=== PATIENT | male | born 1940 | race Caucasian/White ===

== ENCOUNTER 2020-03-09 13:04 | Inpatient (IN) | payer OTHER, SELFPAY ==
[~2020-03-09] VITALS: Ht 172.7 cm; Wt 90.7 kg
[2020-03-09 13:20] VITALS: BP_SYST 105
[2020-03-09 14:04] LABS: BASOPHILS # (AUTO) 0.1 K/uL (0.0-0.2); BASOPHILS % (AUTO) 0.3 % (0.0-2.0); EOSINOPHILS # (AUTO) 0.1 K/uL (0.0-0.4); EOSINOPHILS % (AUTO) 0.6 % (0.0-4.0); HEMATOCRIT 38.7 % (36-54); HEMOGLOBIN 12.5 g/dL (14.0-18.0); LYMPHOCYTES # (AUTO) 1.2 K/uL (1.0-5.5); LYMPHOCYTES % (AUTO) 5.5 % (20.5-51.5); MEAN CORPUSCULAR HEMOGLOBIN 31 pg (27-31); MEAN CORPUSCULAR HGB CONC 32 % (32-36); MEAN CORPUSCULAR VOLUME 98 fL (79.0-98.0); MONOCYTES # (AUTO) 0.4 K/uL (0.0-1.0); MONOCYTES % (AUTO) 1.7 % (1.7-9.3); NEUTROPHILS # (AUTO) 20.7 K/uL (1.8-7.7); NEUTROPHILS % (AUTO) 91.9 % (40.0-70.0); PLATELET COUNT (AUTO) 300 K/uL (130-430); RED BLOOD CELL COUNT(AUTO) 3.97 MIL/uL (4.2-6.2); WHITE BLOOD COUNT (AUTO) 22.5 K/uL (4.8-10.8)
[2020-03-09 14:24] LABS: ANION GAP 12 (5-15); CALCIUM 8.3 mg/dL (8.4-11.0); CHLORIDE 101 mmol/L (98-107); CREATININE 1.94 mg/dL (0.55-1.30); GLUCOSE 132 mg/dL (70-99); POTASSIUM 3.8 mmol/L (3.5-5.1); SODIUM SERUM 138 mmol/L (136-145); UREA NITROGEN, BLOOD 18 mg/dL (8-21)
[2020-03-09 14:30] LABS: ALANINE AMINOTRANSFERASE 15 U/L (12-78); ASPARTATE AMINOTRANSFERASE 31 U/L (10-37); LACTATE DEHYDROGENASE 172 U/L (85-227); TOTAL BILIRUBIN 0.4 mg/dL (0.0-1.0)
[2020-03-09 14:54] LABS: PROTHROMBIN TIME 10.5 SECS (9.5-12.5)
[2020-03-09] MEDS ORDERED: PIPERACILLIN/TAZO 3.375 GM in NS 50 ML IV ONE (15:30)
[2020-03-09] MEDS ORDERED: AZITHROMYCIN 500 MG in NS 250 ML IV ONE (15:30)
[2020-03-09] MEDS ORDERED: NS 500 ML IV ONE (15:45)
[2020-03-09] MEDS ORDERED: NACL 0.9% 2,000 ML IV ONE (15:45)
[2020-03-09] MEDS ORDERED: AZITHROMYCIN 500 MG/VIAL (ZITHROMAX) IV ONE (15:56)
[2020-03-09] MEDS ORDERED: PIPERACILLIN/TAZOBACTAM 3.375 GM/VIAL (ZOSYN) IV ONE (15:56)
[2020-03-09] MEDS ORDERED: FURO-149 PO (16:30)
[2020-03-09] MEDS ORDERED: CARB1TAB21 PO (16:30)
[2020-03-09] MEDS ORDERED: LIP10 PO (16:30)
[2020-03-09 17:30] LABS: BILIRUBIN,URINE NEGATIVE (NEGATIVE); BLOOD, URINE NEGATIVE (NEGATIVE); COLOR,URINE YELLOW (YELLOW); GLUCOSE,URINE NEGATIVE (NEGATIVE); KETONES,URINE NEGATIVE (NEGATIVE); LEUKOCYTE ESTERASE ,URINE 1+ (NEGATIVE); NITRITE, URINE NEGATIVE (NEGATIVE); PROTEIN URINE NEGATIVE (NEGATIVE); UROBILINOGEN,URINE 0.2 (0.2-1.0)
[2020-03-09 17:38] LABS: CLARITY/URINE SLIGHTLY HAZY (CLEAR)
[2020-03-09 17:43] LABS: BACTERIA,URINE FEW /HPF (None Seen); MUCUS,URINE None Seen /LPF (None Seen); RBC,URINE 0-3 /HPF (0-3); YEAST,URINE Moderate /HPF (None Seen)
[2020-03-09 17:44] LABS: WBC,URINE 20-50 /HPF (0-3)
[2020-03-09 17:44] LABS: C-REACTIVE PROTEIN QUANT 2.9 mg/dL (0-0.5)
[2020-03-09] MEDS ORDERED: cefTRIAXone 1 GM IVPB PREMIX 50 ML IV SCH (20:00)
[2020-03-09] MEDS ORDERED: VANCOMYCIN HCL 1000 MG/VIAL IV ONE (20:34)
[2020-03-09] MEDS ORDERED: cefTRIAXone 1 GM IVPB PREMIX 50 ML IV ONE (20:34)
[2020-03-09 20:57] VITALS: BP_SYST 121
[2020-03-09] MEDS: CARBIDOPA/LEVODOPA 25/100 MG TABLET PO SCH (21:00)
[2020-03-09] MEDS ORDERED: VANCOMYCIN HCL 1 GM/NS PREMIX 250 ML IV ONE (21:00)
[2020-03-09] MEDS: ATORVASTATIN 10 MG TABLET PO SCH (21:00)
[2020-03-09] MEDS: NORMAL SALINE 5 ML DISP.SYRIN IVF SCH (22:00)
[2020-03-09] MEDS ORDERED: FUROSEMIDE 40 MG TABLET PO ONE (22:30)
[2020-03-10] VITALS: BP_SYST 126
[2020-03-10] MEDS: NORMAL SALINE 5 ML DISP.SYRIN IVF SCH ×3 (06:02→23:14)
[2020-03-10 07:42] LABS: HEMATOCRIT 33.9 % (36-54); HEMOGLOBIN 11.1 g/dL (14.0-18.0); MEAN CORPUSCULAR HEMOGLOBIN 32 pg (27-31); MEAN CORPUSCULAR HGB CONC 33 % (32-36); MEAN CORPUSCULAR VOLUME 98 fL (79.0-98.0); PLATELET COUNT (AUTO) 247 K/uL (130-430); RED BLOOD CELL COUNT(AUTO) 3.46 MIL/uL (4.2-6.2); RED CELL DISTRIBUTION WIDTH 15.5 % (9.0-15.0)
[2020-03-10 08:00] LABS: ALANINE AMINOTRANSFERASE 17 U/L (12-78); ALBUMIN 2.6 g/dL (3.4-4.8); ANION GAP 10 (5-15); ASPARTATE AMINOTRANSFERASE 38 U/L (10-37); CALCIUM 7.9 mg/dL (8.4-11.0); CHLORIDE 101 mmol/L (98-107); CREATININE 2.34 mg/dL (0.55-1.30); GLUCOSE 155 mg/dL (70-99); POTASSIUM 3.8 mmol/L (3.5-5.1); SODIUM SERUM 138 mmol/L (136-145); TOTAL BILIRUBIN 0.5 mg/dL (0.0-1.0); UREA NITROGEN, BLOOD 27 mg/dL (8-21)
[2020-03-10 08:31] LABS: BAND % (MANUAL) 8 % (0-6); BASOPHILS % (MANUAL) 0 % (0-2); EOSINOPHILS % (MANUAL) 0 % (0-7); LYMPHOCYTES % (MANUAL) 3 % (20-46); MONOCYTES % (MANUAL) 2 % (0-11)
[2020-03-10 09:00] VITALS: BP_SYST 106
[2020-03-10] MEDS: FUROSEMIDE 40 MG TABLET PO SCH ×2 (09:30→21:00)
[2020-03-10] MEDS: CARBIDOPA/LEVODOPA 25/100 MG TABLET PO SCH ×4 (09:31→21:00)
[2020-03-10 13:45] VITALS: BP_SYST 116
[2020-03-10] MEDS: PIPERACILLIN/TAZO 2.25G/DEX-IS 50 ML IV SCH ×2 (14:00→23:14)
[2020-03-10 16:59] VITALS: BP_SYST 145
[2020-03-10] MEDS: AZITHROMYCIN 500 MG in NS 250 ML IV SCH (17:04)
[2020-03-10 20:00] VITALS: BP_SYST 131
[2020-03-10] MEDS: VANCOMYCIN HCL 1,000 MG in NS 250 ML IV SCH (21:00)
[2020-03-10] MEDS: ATORVASTATIN 10 MG TABLET PO SCH (21:00)
[2020-03-11] VITALS: BP_SYST 110
[2020-03-11] MEDS: NORMAL SALINE 5 ML DISP.SYRIN IVF SCH ×3 (06:58→22:00)
[2020-03-11] MEDS: PIPERACILLIN/TAZO 2.25G/DEX-IS 50 ML IV SCH ×2 (06:58→14:43)
[2020-03-11 07:26] LABS: BASOPHILS # (AUTO) 0.1 K/uL (0.0-0.2); BASOPHILS % (AUTO) 0.7 % (0.0-2.0); EOSINOPHILS # (AUTO) 0.6 K/uL (0.0-0.4); EOSINOPHILS % (AUTO) 2.8 % (0.0-4.0); HEMATOCRIT 34.5 % (36-54); HEMOGLOBIN 11.4 g/dL (14.0-18.0); LYMPHOCYTES # (AUTO) 1.8 K/uL (1.0-5.5); LYMPHOCYTES % (AUTO) 8.7 % (20.5-51.5); MEAN CORPUSCULAR HEMOGLOBIN 32 pg (27-31); MEAN CORPUSCULAR HGB CONC 33 % (32-36); MEAN CORPUSCULAR VOLUME 96 fL (79.0-98.0); MONOCYTES # (AUTO) 1.1 K/uL (0.0-1.0); MONOCYTES % (AUTO) 5.3 % (1.7-9.3); NEUTROPHILS # (AUTO) 17.1 K/uL (1.8-7.7); NEUTROPHILS % (AUTO) 82.5 % (40.0-70.0); PLATELET COUNT (AUTO) 203 K/uL (130-430); RED BLOOD CELL COUNT(AUTO) 3.58 MIL/uL (4.2-6.2); RED CELL DISTRIBUTION WIDTH 15.3 % (9.0-15.0); WHITE BLOOD COUNT (AUTO) 20.7 K/uL (4.8-10.8)
[2020-03-11] MEDS: FUROSEMIDE 40 MG TABLET PO SCH ×2 (07:38→21:00)
[2020-03-11 07:45] LABS: ALANINE AMINOTRANSFERASE 16 U/L (12-78); ALBUMIN 2.5 g/dL (3.4-4.8); ANION GAP 9 (5-15); ASPARTATE AMINOTRANSFERASE 31 U/L (10-37); CALCIUM 7.9 mg/dL (8.4-11.0); CHLORIDE 101 mmol/L (98-107); CREATININE 2.17 mg/dL (0.55-1.30); GLUCOSE 110 mg/dL (70-99); PHOSPHORUS 3.4 mg/dL (2.7-4.5); POTASSIUM 3.1 mmol/L (3.5-5.1); SODIUM SERUM 139 mmol/L (136-145); TOTAL BILIRUBIN 0.5 mg/dL (0.0-1.0); UREA NITROGEN, BLOOD 31 mg/dL (8-21)
[2020-03-11 08:30] VITALS: BP_SYST 120
[2020-03-11] MEDS: CARBIDOPA/LEVODOPA 25/100 MG TABLET PO SCH ×4 (09:59→21:00)
[2020-03-11 12:30] VITALS: BP_SYST 116
[2020-03-11] MEDS: AZITHROMYCIN 500 MG in NS 250 ML IV SCH (16:10)
[2020-03-11] MEDS ORDERED: POTASSIUM CHLORIDE 10 MEQ TAB.PRT.SR PO ONE (16:45)
[2020-03-11 17:45] VITALS: BP_SYST 125
[2020-03-11 20:00] VITALS: BP_SYST 106
[2020-03-11] MEDS: ATORVASTATIN 10 MG TABLET PO SCH (21:00)
[2020-03-11] MEDS: VANCOMYCIN HCL 1,000 MG in NS 250 ML IV SCH (21:00)
[2020-03-11] MEDS ORDERED: HEPARIN SODIUM,PORCINE 5000 UNITS/ML VIAL IVP ONE (23:00)
[2020-03-11] MEDS ORDERED: HEPARIN SODIUM,PORCINE 5000 UNITS/ML VIAL IV ONE (23:00)
[2020-03-11] MEDS ORDERED: HEPARIN SODIUM,PORCINE 5000 UNITS/ML VIAL ONE (23:18)
[2020-03-12] VITALS: BP_SYST 110
[2020-03-12] MEDS: NORMAL SALINE 5 ML DISP.SYRIN IVF SCH ×3 (06:00→22:43)
[2020-03-12 07:18] LABS: BASOPHILS # (AUTO) 0.1 K/uL (0.0-0.2); BASOPHILS % (AUTO) 0.6 % (0.0-2.0); EOSINOPHILS # (AUTO) 0.9 K/uL (0.0-0.4); EOSINOPHILS % (AUTO) 6.8 % (0.0-4.0); HEMATOCRIT 33.2 % (36-54); LYMPHOCYTES # (AUTO) 2.1 K/uL (1.0-5.5); LYMPHOCYTES % (AUTO) 16.6 % (20.5-51.5); MEAN CORPUSCULAR HEMOGLOBIN 32 pg (27-31); MEAN CORPUSCULAR HGB CONC 33 % (32-36); MEAN CORPUSCULAR VOLUME 96 fL (79.0-98.0); MONOCYTES % (AUTO) 8.3 % (1.7-9.3); NEUTROPHILS # (AUTO) 8.5 K/uL (1.8-7.7); NEUTROPHILS % (AUTO) 67.7 % (40.0-70.0); PLATELET COUNT (AUTO) 194 K/uL (130-430); RED BLOOD CELL COUNT(AUTO) 3.45 MIL/uL (4.2-6.2); RED CELL DISTRIBUTION WIDTH 15.2 % (9.0-15.0); WHITE BLOOD COUNT (AUTO) 12.6 K/uL (4.8-10.8)
[2020-03-12 07:40] LABS: ANION GAP 6 (5-15); CALCIUM 7.9 mg/dL (8.4-11.0); CHLORIDE 102 mmol/L (98-107); CREATININE 1.47 mg/dL (0.55-1.30); GLUCOSE 120 mg/dL (70-99); POTASSIUM 3.1 mmol/L (3.5-5.1); SODIUM SERUM 138 mmol/L (136-145); UREA NITROGEN, BLOOD 22 mg/dL (8-21)
[2020-03-12 08:00] VITALS: BP_SYST 129
[2020-03-12] MEDS ORDERED: POTASSIUM CHLORIDE 20 MEQ/PKT PACKET PO ONE (08:45)
[2020-03-12] MEDS: FUROSEMIDE 40 MG TABLET PO SCH ×2 (09:00→22:43)
[2020-03-12] MEDS: CARBIDOPA/LEVODOPA 25/100 MG TABLET PO SCH ×4 (09:00→22:43)
[2020-03-12 12:00] VITALS: BP_SYST 116
[2020-03-12] MEDS: AZITHROMYCIN 500 MG in NS 250 ML IV SCH (15:45)
[2020-03-12 16:00] VITALS: BP_SYST 118
[2020-03-12] MEDS: VANCOMYCIN HCL 1,500 MG in NS 250 ML IV SCH (18:14)
[2020-03-12 19:45] VITALS: BP_SYST 122
[2020-03-12] MEDS: ATORVASTATIN 10 MG TABLET PO SCH (22:42)
[2020-03-12] MEDS: PIPERACILLIN/TAZO 2.25G/DEX-IS 50 ML IV SCH ×2 (22:42→22:59)
[2020-03-12 23:40] VITALS: BP_SYST 121
[2020-03-13] MEDS: PIPERACILLIN/TAZO 2.25G/DEX-IS 50 ML IV SCH ×3 (06:42→22:39)
[2020-03-13] MEDS: NORMAL SALINE 5 ML DISP.SYRIN IVF SCH ×3 (06:44→22:40)
[2020-03-13 08:00] VITALS: BP_SYST 123
[2020-03-13 08:55] LABS: BASOPHILS # (AUTO) 0.1 K/uL (0.0-0.2); BASOPHILS % (AUTO) 0.9 % (0.0-2.0); EOSINOPHILS # (AUTO) 0.8 K/uL (0.0-0.4); EOSINOPHILS % (AUTO) 7.7 % (0.0-4.0); HEMATOCRIT 36.7 % (36-54); HEMOGLOBIN 12.1 g/dL (14.0-18.0); LYMPHOCYTES # (AUTO) 1.8 K/uL (1.0-5.5); LYMPHOCYTES % (AUTO) 17.8 % (20.5-51.5); MEAN CORPUSCULAR HEMOGLOBIN 32 pg (27-31); MEAN CORPUSCULAR HGB CONC 33 % (32-36); MEAN CORPUSCULAR VOLUME 96 fL (79.0-98.0); NEUTROPHILS # (AUTO) 6.4 K/uL (1.8-7.7); NEUTROPHILS % (AUTO) 63.6 % (40.0-70.0); PLATELET COUNT (AUTO) 219 K/uL (130-430); RED BLOOD CELL COUNT(AUTO) 3.81 MIL/uL (4.2-6.2); RED CELL DISTRIBUTION WIDTH 15.2 % (9.0-15.0); WHITE BLOOD COUNT (AUTO) 10.1 K/uL (4.8-10.8)
[2020-03-13] MEDS: CARBIDOPA/LEVODOPA 25/100 MG TABLET PO SCH ×4 (09:01→22:38)
[2020-03-13] MEDS: FUROSEMIDE 40 MG TABLET PO SCH ×2 (09:01→22:41)
[2020-03-13 09:10] LABS: ALANINE AMINOTRANSFERASE 20 U/L (12-78); ALBUMIN 2.6 g/dL (3.4-4.8); ANION GAP 8 (5-15); ASPARTATE AMINOTRANSFERASE 34 U/L (10-37); CALCIUM 8.2 mg/dL (8.4-11.0); CHLORIDE 102 mmol/L (98-107); GLUCOSE 123 mg/dL (70-99); PHOSPHORUS 3.9 mg/dL (2.7-4.5); SODIUM SERUM 139 mmol/L (136-145); TOTAL BILIRUBIN 0.5 mg/dL (0.0-1.0); UREA NITROGEN, BLOOD 28 mg/dL (8-21)
[2020-03-13] MEDS ORDERED: POTASSIUM CHLORIDE 20 MEQ/PKT PACKET PO ONE (12:15)
[2020-03-13 12:50] VITALS: BP_SYST 113
[2020-03-13 16:18] VITALS: BP_SYST 133
[2020-03-13] MEDS: AZITHROMYCIN 500 MG in NS 250 ML IV SCH (16:38)
[2020-03-13] MEDS: VANCOMYCIN HCL 1,500 MG in NS 250 ML IV SCH (19:13)
[2020-03-13 19:50] VITALS: BP_SYST 130
[2020-03-13] MEDS: ATORVASTATIN 10 MG TABLET PO SCH (22:37)
[2020-03-14 00:44] VITALS: BP_SYST 114
[2020-03-14] MEDS: PIPERACILLIN/TAZO 2.25G/DEX-IS 50 ML IV SCH (05:48)
[2020-03-14] MEDS: NORMAL SALINE 5 ML DISP.SYRIN IVF SCH ×3 (06:02→23:10)
[2020-03-14 07:50] VITALS: BP_SYST 119
[2020-03-14] MEDS ORDERED: LIDOCAINE 1% 10 MG/ML, 20 ML MDV INJ ONE (09:00)
[2020-03-14] MEDS: CARBIDOPA/LEVODOPA 25/100 MG TABLET PO SCH ×4 (09:58→23:08)
[2020-03-14] MEDS: FUROSEMIDE 40 MG TABLET PO SCH ×2 (09:58→23:09)
[2020-03-14 12:00] VITALS: BP_SYST 108
[2020-03-14 16:46] VITALS: BP_SYST 125
[2020-03-14] MEDS: VANCOMYCIN HCL 1,500 MG in NS 250 ML IV SCH (17:54)
[2020-03-14 19:45] VITALS: BP_SYST 120
[2020-03-14] MEDS: ATORVASTATIN 10 MG TABLET PO SCH (23:08)
[2020-03-15 00:04] VITALS: BP_SYST 118
[2020-03-15] MEDS: NORMAL SALINE 5 ML DISP.SYRIN IVF SCH ×3 (05:35→23:25)
[2020-03-15 08:00] VITALS: BP_SYST 126
[2020-03-15] MEDS: CARBIDOPA/LEVODOPA 25/100 MG TABLET PO SCH ×4 (09:44→23:16)
[2020-03-15] MEDS: FUROSEMIDE 40 MG TABLET PO SCH ×2 (09:44→23:22)
[2020-03-15 12:13] VITALS: BP_SYST 119
[2020-03-15 16:12] VITALS: BP_SYST 115
[2020-03-15] MEDS ORDERED: POTASSIUM CHLORIDE 20 MEQ TAB.PRT.SR PO ONE (17:00)
[2020-03-15] MEDS: ATORVASTATIN 10 MG TABLET PO SCH (23:22)
[2020-03-16 00:26] VITALS: BP_SYST 122
[2020-03-16] MEDS: VANCOMYCIN HCL 1,250 MG in NS 250 ML IV SCH (05:52)
[2020-03-16] MEDS: NORMAL SALINE 5 ML DISP.SYRIN IVF SCH ×3 (05:53→21:44)
[2020-03-16 07:17] LABS: BASOPHILS # (AUTO) 0.2 K/uL (0.0-0.2); BASOPHILS % (AUTO) 1.2 % (0.0-2.0); EOSINOPHILS % (AUTO) 6.5 % (0.0-4.0); HEMATOCRIT 36.1 % (36-54); HEMOGLOBIN 11.8 g/dL (14.0-18.0); LYMPHOCYTES # (AUTO) 3.1 K/uL (1.0-5.5); LYMPHOCYTES % (AUTO) 19.5 % (20.5-51.5); MEAN CORPUSCULAR HEMOGLOBIN 31 pg (27-31); MEAN CORPUSCULAR HGB CONC 33 % (32-36); MEAN CORPUSCULAR VOLUME 96 fL (79.0-98.0); MONOCYTES # (AUTO) 1.3 K/uL (0.0-1.0); MONOCYTES % (AUTO) 8.3 % (1.7-9.3); NEUTROPHILS # (AUTO) 10.1 K/uL (1.8-7.7); NEUTROPHILS % (AUTO) 64.5 % (40.0-70.0); PLATELET COUNT (AUTO) 281 K/uL (130-430); RED BLOOD CELL COUNT(AUTO) 3.77 MIL/uL (4.2-6.2); RED CELL DISTRIBUTION WIDTH 15.4 % (9.0-15.0); WHITE BLOOD COUNT (AUTO) 15.7 K/uL (4.8-10.8)
[2020-03-16 07:36] LABS: ALANINE AMINOTRANSFERASE 16 U/L (12-78); ALBUMIN 2.7 g/dL (3.4-4.8); ANION GAP 6 (5-15); ASPARTATE AMINOTRANSFERASE 23 U/L (10-37); CALCIUM 8.3 mg/dL (8.4-11.0); CHLORIDE 101 mmol/L (98-107); CREATININE 1.85 mg/dL (0.55-1.30); GLUCOSE 123 mg/dL (70-99); PHOSPHORUS 4.2 mg/dL (2.7-4.5); POTASSIUM 3.4 mmol/L (3.5-5.1); SODIUM SERUM 136 mmol/L (136-145); TOTAL BILIRUBIN 0.4 mg/dL (0.0-1.0); UREA NITROGEN, BLOOD 38 mg/dL (8-21)
[2020-03-16 08:00] VITALS: BP_SYST 130
[2020-03-16] MEDS: CARBIDOPA/LEVODOPA 25/100 MG TABLET PO SCH ×4 (08:33→21:44)
[2020-03-16] MEDS: FUROSEMIDE 40 MG TABLET PO SCH ×2 (08:33→21:00)
[2020-03-16 12:15] VITALS: BP_SYST 108
[2020-03-16 16:07] VITALS: BP_SYST 124
[2020-03-16 20:00] VITALS: BP_SYST 148
[2020-03-16] MEDS: ATORVASTATIN 10 MG TABLET PO SCH (21:44)
[2020-03-17 00:37] VITALS: BP_SYST 110
[2020-03-17] MEDS: VANCOMYCIN HCL 1,250 MG in NS 250 ML IV SCH (06:26)
[2020-03-17] MEDS: NORMAL SALINE 5 ML DISP.SYRIN IVF SCH ×3 (06:27→22:19)
[2020-03-17 06:34] LABS: ALANINE AMINOTRANSFERASE 16 U/L (12-78); ALBUMIN 2.7 g/dL (3.4-4.8); ANION GAP 8 (5-15); ASPARTATE AMINOTRANSFERASE 26 U/L (10-37); CALCIUM 8.4 mg/dL (8.4-11.0); CHLORIDE 99 mmol/L (98-107); CREATININE 1.79 mg/dL (0.55-1.30); GLUCOSE 114 mg/dL (70-99); POTASSIUM 3.2 mmol/L (3.5-5.1); SODIUM SERUM 137 mmol/L (136-145); TOTAL BILIRUBIN 0.4 mg/dL (0.0-1.0); UREA NITROGEN, BLOOD 28 mg/dL (8-21)
[2020-03-17 06:45] LABS: BASOPHILS # (AUTO) 0.2 K/uL (0.0-0.2); BASOPHILS % (AUTO) 1.1 % (0.0-2.0); EOSINOPHILS % (AUTO) 6.2 % (0.0-4.0); HEMATOCRIT 36.3 % (36-54); LYMPHOCYTES % (AUTO) 25.4 % (20.5-51.5); MEAN CORPUSCULAR HEMOGLOBIN 32 pg (27-31); MEAN CORPUSCULAR HGB CONC 33 % (32-36); MEAN CORPUSCULAR VOLUME 96 fL (79.0-98.0); MONOCYTES # (AUTO) 1.3 K/uL (0.0-1.0); NEUTROPHILS # (AUTO) 9.3 K/uL (1.8-7.7); NEUTROPHILS % (AUTO) 59.3 % (40.0-70.0); PLATELET COUNT (AUTO) 292 K/uL (130-430); RED BLOOD CELL COUNT(AUTO) 3.81 MIL/uL (4.2-6.2); RED CELL DISTRIBUTION WIDTH 15.2 % (9.0-15.0); WHITE BLOOD COUNT (AUTO) 15.8 K/uL (4.8-10.8)
[2020-03-17] MEDS: CARBIDOPA/LEVODOPA 25/100 MG TABLET PO SCH ×4 (08:14→22:19)
[2020-03-17] MEDS: FUROSEMIDE 40 MG TABLET PO SCH ×2 (08:14→22:19)
[2020-03-17 08:19] VITALS: BP_SYST 101
[2020-03-17] MEDS ORDERED: POTASSIUM CHLORIDE 20 MEQ/PKT PACKET PO ONE (11:00)
[2020-03-17 12:33] VITALS: BP_SYST 116
[2020-03-17 16:30] VITALS: BP_SYST 114
[2020-03-17 20:00] VITALS: BP_SYST 108
[2020-03-17] MEDS: ATORVASTATIN 10 MG TABLET PO SCH (22:18)
[2020-03-18 00:08] VITALS: BP_SYST 122
[2020-03-18 05:26] LABS: ALANINE AMINOTRANSFERASE 15 U/L (12-78); ALBUMIN 2.8 g/dL (3.4-4.8); ANION GAP 7 (5-15); ASPARTATE AMINOTRANSFERASE 23 U/L (10-37); CALCIUM 8.6 mg/dL (8.4-11.0); CHLORIDE 101 mmol/L (98-107); CREATININE 1.97 mg/dL (0.55-1.30); GLUCOSE 119 mg/dL (70-99); PHOSPHORUS 4.6 mg/dL (2.7-4.5); POTASSIUM 3.2 mmol/L (3.5-5.1); SODIUM SERUM 137 mmol/L (136-145); TOTAL BILIRUBIN 0.4 mg/dL (0.0-1.0); UREA NITROGEN, BLOOD 41 mg/dL (8-21)
[2020-03-18] MEDS: VANCOMYCIN HCL 1,250 MG in NS 250 ML IV SCH (05:56)
[2020-03-18] MEDS: NORMAL SALINE 5 ML DISP.SYRIN IVF SCH ×3 (05:57→20:16)
[2020-03-18 06:14] LABS: BASOPHILS # (AUTO) 0.2 K/uL (0.0-0.2); BASOPHILS % (AUTO) 1.3 % (0.0-2.0); EOSINOPHILS # (AUTO) 0.9 K/uL (0.0-0.4); EOSINOPHILS % (AUTO) 5.6 % (0.0-4.0); HEMATOCRIT 37.7 % (36-54); HEMOGLOBIN 12.3 g/dL (14.0-18.0); LYMPHOCYTES # (AUTO) 3.5 K/uL (1.0-5.5); LYMPHOCYTES % (AUTO) 21.4 % (20.5-51.5); MEAN CORPUSCULAR HEMOGLOBIN 31 pg (27-31); MEAN CORPUSCULAR HGB CONC 33 % (32-36); MEAN CORPUSCULAR VOLUME 96 fL (79.0-98.0); MONOCYTES # (AUTO) 1.4 K/uL (0.0-1.0); MONOCYTES % (AUTO) 8.7 % (1.7-9.3); NEUTROPHILS # (AUTO) 10.2 K/uL (1.8-7.7); PLATELET COUNT (AUTO) 315 K/uL (130-430); RED BLOOD CELL COUNT(AUTO) 3.93 MIL/uL (4.2-6.2); RED CELL DISTRIBUTION WIDTH 15.3 % (9.0-15.0); WHITE BLOOD COUNT (AUTO) 16.3 K/uL (4.8-10.8)
[2020-03-18 08:00] VITALS: BP_SYST 120
[2020-03-18] MEDS: CARBIDOPA/LEVODOPA 25/100 MG TABLET PO SCH ×5 (08:22→21:00)
[2020-03-18] MEDS: FUROSEMIDE 40 MG TABLET PO SCH ×3 (08:23→20:13)
[2020-03-18 12:58] VITALS: BP_SYST 129
[2020-03-18 17:11] VITALS: BP_SYST 130
[2020-03-18] MEDS ORDERED: POTASSIUM CHLORIDE 20 MEQ/PKT PACKET PO ONE (17:30)
[2020-03-18] MEDS ORDERED: VANCOMYCIN HCL 500 MG in NS 100 ML IV SCH (17:45)
[2020-03-18 20:00] VITALS: BP_SYST 126
[2020-03-18] MEDS: ATORVASTATIN 10 MG TABLET PO SCH (20:13)
[2020-03-19 01:07] VITALS: BP_SYST 133
[2020-03-19] MEDS: NORMAL SALINE 5 ML DISP.SYRIN IVF SCH ×3 (05:06→22:34)
[2020-03-19 07:01] LABS: BASOPHILS # (AUTO) 0.2 K/uL (0.0-0.2); EOSINOPHILS # (AUTO) 0.7 K/uL (0.0-0.4); EOSINOPHILS % (AUTO) 4.3 % (0.0-4.0); HEMATOCRIT 38.7 % (36-54); HEMOGLOBIN 12.9 g/dL (14.0-18.0); LYMPHOCYTES # (AUTO) 2.9 K/uL (1.0-5.5); LYMPHOCYTES % (AUTO) 18.4 % (20.5-51.5); MEAN CORPUSCULAR HEMOGLOBIN 32 pg (27-31); MEAN CORPUSCULAR HGB CONC 33 % (32-36); MEAN CORPUSCULAR VOLUME 95 fL (79.0-98.0); MONOCYTES # (AUTO) 1.3 K/uL (0.0-1.0); MONOCYTES % (AUTO) 8.2 % (1.7-9.3); NEUTROPHILS # (AUTO) 10.8 K/uL (1.8-7.7); NEUTROPHILS % (AUTO) 68.1 % (40.0-70.0); PLATELET COUNT (AUTO) 324 K/uL (130-430); RED BLOOD CELL COUNT(AUTO) 4.06 MIL/uL (4.2-6.2); RED CELL DISTRIBUTION WIDTH 15.1 % (9.0-15.0); WHITE BLOOD COUNT (AUTO) 15.8 K/uL (4.8-10.8)
[2020-03-19 07:14] LABS: ANION GAP 7 (5-15); CALCIUM 8.4 mg/dL (8.4-11.0); CHLORIDE 101 mmol/L (98-107); CREATININE 1.64 mg/dL (0.55-1.30); GLUCOSE 110 mg/dL (70-99); POTASSIUM 3.1 mmol/L (3.5-5.1); SODIUM SERUM 139 mmol/L (136-145); UREA NITROGEN, BLOOD 27 mg/dL (8-21)
[2020-03-19 08:00] VITALS: BP_SYST 126
[2020-03-19] MEDS ORDERED: POTASSIUM CHLORIDE 10 MEQ TAB.PRT.SR PO ONE (08:15)
[2020-03-19] MEDS: FUROSEMIDE 40 MG TABLET PO SCH ×2 (08:18→21:00)
[2020-03-19] MEDS: CARBIDOPA/LEVODOPA 25/100 MG TABLET PO SCH ×6 (08:18→17:01)
[2020-03-19] MEDS ORDERED: MORPHINE SULFATE 15 MG TABLET.ER PO ONE (09:15)
[2020-03-19] MEDS ORDERED: MENTHOL/ZINC OXIDE 113 GM OINT. TP PRN (09:30)
[2020-03-19] MEDS ORDERED: BALSAM PERU/CASTOR OIL 60 GM OINT...G. TP ONE (10:00)
[2020-03-19] MEDS: guaiFENesin 200 MG/10 ML UDC PO PRN (12:11)
[2020-03-19 12:27] VITALS: BP_SYST 124
[2020-03-19 17:04] VITALS: BP_SYST 97
[2020-03-19 20:00] VITALS: BP_SYST 102
[2020-03-19] MEDS: NYSTATIN 15 GM TOPICAL POWDER TP SCH (21:09)
[2020-03-19] MEDS: CARBIDOPA/LEVODOPA 10/100 MG TABLET PO SCH (21:09)
[2020-03-19] MEDS: ATORVASTATIN 10 MG TABLET PO SCH (21:09)
[2020-03-19] MEDS: VANCOMYCIN HCL 1,000 MG in NS 250 ML IV SCH (22:39)
[2020-03-20 00:17] VITALS: BP_SYST 104
[2020-03-20] MEDS: NORMAL SALINE 5 ML DISP.SYRIN IVF SCH ×3 (05:17→22:18)
[2020-03-20 07:36] LABS: BASOPHILS # (AUTO) 0.1 K/uL (0.0-0.2); BASOPHILS % (AUTO) 0.9 % (0.0-2.0); EOSINOPHILS # (AUTO) 0.9 K/uL (0.0-0.4); EOSINOPHILS % (AUTO) 6.2 % (0.0-4.0); HEMATOCRIT 40.1 % (36-54); HEMOGLOBIN 13.3 g/dL (14.0-18.0); LYMPHOCYTES # (AUTO) 2.6 K/uL (1.0-5.5); LYMPHOCYTES % (AUTO) 18.6 % (20.5-51.5); MEAN CORPUSCULAR HEMOGLOBIN 32 pg (27-31); MEAN CORPUSCULAR HGB CONC 33 % (32-36); MEAN CORPUSCULAR VOLUME 96 fL (79.0-98.0); MONOCYTES # (AUTO) 0.8 K/uL (0.0-1.0); MONOCYTES % (AUTO) 5.6 % (1.7-9.3); NEUTROPHILS # (AUTO) 9.7 K/uL (1.8-7.7); NEUTROPHILS % (AUTO) 68.7 % (40.0-70.0); PLATELET COUNT (AUTO) 331 K/uL (130-430); RED BLOOD CELL COUNT(AUTO) 4.19 MIL/uL (4.2-6.2); RED CELL DISTRIBUTION WIDTH 15.7 % (9.0-15.0); WHITE BLOOD COUNT (AUTO) 14.1 K/uL (4.8-10.8)
[2020-03-20 07:51] VITALS: BP_SYST 114
[2020-03-20] MEDS: NYSTATIN 15 GM TOPICAL POWDER TP SCH ×2 (08:44→20:15)
[2020-03-20] MEDS: FUROSEMIDE 40 MG TABLET PO SCH ×2 (08:44→20:15)
[2020-03-20] MEDS: BALSAM PERU/CASTOR OIL 60 GM OINT...G. TP SCH (08:44)
[2020-03-20] MEDS: CARBIDOPA/LEVODOPA 10/100 MG TABLET PO SCH ×4 (08:44→20:15)
[2020-03-20] MEDS: guaiFENesin 200 MG/10 ML UDC PO PRN (08:55)
[2020-03-20 12:00] VITALS: BP_SYST 115
[2020-03-20 16:09] VITALS: BP_SYST 164
[2020-03-20 20:00] VITALS: BP_SYST 126
[2020-03-20] MEDS: ATORVASTATIN 10 MG TABLET PO SCH (20:14)
[2020-03-20] MEDS: VANCOMYCIN HCL 1,000 MG in NS 250 ML IV SCH (22:19)
[2020-03-21] VITALS (7 sets, daily range): BP systolic 111–151
[2020-03-21] MEDS: NORMAL SALINE 5 ML DISP.SYRIN IVF SCH ×3 (06:02→21:28)
[2020-03-21] MEDS: guaiFENesin 200 MG/10 ML UDC PO PRN (06:09)
[2020-03-21] MEDS: FUROSEMIDE 40 MG TABLET PO SCH ×2 (09:25→21:26)
[2020-03-21] MEDS: CARBIDOPA/LEVODOPA 10/100 MG TABLET PO SCH ×4 (09:28→21:27)
[2020-03-21] MEDS: BALSAM PERU/CASTOR OIL 60 GM OINT...G. TP SCH (09:29)
[2020-03-21] MEDS: NYSTATIN 15 GM TOPICAL POWDER TP SCH ×2 (09:29→21:27)
[2020-03-21 09:50] LABS: ANION GAP 8 (5-15); CALCIUM 8.3 mg/dL (8.4-11.0); CHLORIDE 100 mmol/L (98-107); CREATININE 2.03 mg/dL (0.55-1.30); GLUCOSE 157 mg/dL (70-99); POTASSIUM 3.2 mmol/L (3.5-5.1); SODIUM SERUM 137 mmol/L (136-145); UREA NITROGEN, BLOOD 33 mg/dL (8-21)
[2020-03-21] MEDS: VANCOMYCIN HCL 1,000 MG in NS 250 ML IV SCH (21:27)
[2020-03-21] MEDS: ATORVASTATIN 10 MG TABLET PO SCH (21:33)
[2020-03-22 00:29] VITALS: BP_SYST 153
[2020-03-22] MEDS: NORMAL SALINE 5 ML DISP.SYRIN IVF SCH ×3 (05:49→21:30)
[2020-03-22 06:42] LABS: ANION GAP 9 (5-15); CALCIUM 8.4 mg/dL (8.4-11.0); CHLORIDE 98 mmol/L (98-107); CREATININE 2.08 mg/dL (0.55-1.30); GLUCOSE 143 mg/dL (70-99); SODIUM SERUM 134 mmol/L (136-145); UREA NITROGEN, BLOOD 40 mg/dL (8-21)
[2020-03-22 08:00] VITALS: BP_SYST 124
[2020-03-22] MEDS: FUROSEMIDE 40 MG TABLET PO SCH ×2 (09:08→20:57)
[2020-03-22] MEDS: BALSAM PERU/CASTOR OIL 60 GM OINT...G. TP SCH (09:09)
[2020-03-22] MEDS: NYSTATIN 15 GM TOPICAL POWDER TP SCH ×2 (09:09→21:28)
[2020-03-22] MEDS: CARBIDOPA/LEVODOPA 10/100 MG TABLET PO SCH ×4 (09:09→21:28)
[2020-03-22 12:36] VITALS: BP_SYST 115
[2020-03-22 16:30] VITALS: BP_SYST 112
[2020-03-22] MEDS ORDERED: POTASSIUM CHLORIDE 20 MEQ/PKT PACKET PO ONE (18:00)
[2020-03-22] MEDS: ATORVASTATIN 10 MG TABLET PO SCH (20:57)
[2020-03-22] MEDS: VANCOMYCIN HCL 1,000 MG in NS 250 ML IV SCH (20:59)
[2020-03-22 21:00] VITALS: BP_SYST 123
[2020-03-23 00:11] VITALS: BP_SYST 126
[2020-03-23] MEDS: NORMAL SALINE 5 ML DISP.SYRIN IVF SCH ×2 (05:54→14:30)
[2020-03-23 07:43] LABS: BASOPHILS # (AUTO) 0.1 K/uL (0.0-0.2); EOSINOPHILS # (AUTO) 0.7 K/uL (0.0-0.4); EOSINOPHILS % (AUTO) 5.3 % (0.0-4.0); HEMATOCRIT 38.6 % (36-54); HEMOGLOBIN 12.8 g/dL (14.0-18.0); LYMPHOCYTES # (AUTO) 2.6 K/uL (1.0-5.5); LYMPHOCYTES % (AUTO) 18.8 % (20.5-51.5); MEAN CORPUSCULAR HEMOGLOBIN 31 pg (27-31); MEAN CORPUSCULAR HGB CONC 33 % (32-36); MEAN CORPUSCULAR VOLUME 95 fL (79.0-98.0); MONOCYTES # (AUTO) 0.9 K/uL (0.0-1.0); MONOCYTES % (AUTO) 6.1 % (1.7-9.3); NEUTROPHILS # (AUTO) 9.6 K/uL (1.8-7.7); NEUTROPHILS % (AUTO) 68.8 % (40.0-70.0); PLATELET COUNT (AUTO) 297 K/uL (130-430); RED BLOOD CELL COUNT(AUTO) 4.07 MIL/uL (4.2-6.2); RED CELL DISTRIBUTION WIDTH 15.3 % (9.0-15.0)
[2020-03-23 08:00] VITALS: BP_SYST 132
[2020-03-23 08:02] LABS: ANION GAP 8 (5-15); CALCIUM 8.1 mg/dL (8.4-11.0); CHLORIDE 102 mmol/L (98-107); CREATININE 1.94 mg/dL (0.55-1.30); GLUCOSE 124 mg/dL (70-99); PHOSPHORUS 3.9 mg/dL (2.7-4.5); POTASSIUM 3.5 mmol/L (3.5-5.1); SODIUM SERUM 138 mmol/L (136-145); UREA NITROGEN, BLOOD 41 mg/dL (8-21)
[2020-03-23] MEDS: CARBIDOPA/LEVODOPA 10/100 MG TABLET PO SCH ×3 (09:18→17:16)
[2020-03-23] MEDS: FUROSEMIDE 40 MG TABLET PO SCH (09:18)
[2020-03-23] MEDS: NYSTATIN 15 GM TOPICAL POWDER TP SCH (09:19)
[2020-03-23] MEDS: BALSAM PERU/CASTOR OIL 60 GM OINT...G. TP SCH (09:19)
[2020-03-23 12:35] VITALS: BP_SYST 126
[2020-03-23 15:05] VITALS: BP_SYST 132
[2020-03-23 16:00] VITALS: BP_SYST 133
[2020-03-23] MEDS ORDERED: VANCOMYCIN HCL 750 MG in NS 250 ML IV SCH (22:00)
== END 2020-03-23 18:29 | disposition home or self-care (01) | DRG 314 ==
LOC: SED 13:04 → EEVIPCON 13:04 → STU 17:22 → SMU 03-17 10:50
PROVIDERS: ADMIT Internal Medicine Hospice and Palliative Medicine; ATTEND Internal Medicine Hospice and Palliative Medicine
PROC: 5A1D70Z Performance of Urinary Filtration, Intermittent, Less than 6 Hours Per Day (ICD-10-PCS; principal; 2020-03-11)
PROC: 5A1D70Z Performance of Urinary Filtration, Intermittent, Less than 6 Hours Per Day (ICD-10-PCS; 2020-03-13)
PROC: 0JPT3XZ Removal of Tunneled Vascular Access Device from Trunk Subcutaneous Tissue and Fascia, Percutaneous Approach (ICD-10-PCS; 2020-03-14)
PROC: 05PYX3Z Removal of Infusion Device from Upper Vein, External Approach (ICD-10-PCS; 2020-03-14)
PROC: 5A1D70Z Performance of Urinary Filtration, Intermittent, Less than 6 Hours Per Day (ICD-10-PCS; 2020-03-16)
PROC: 5A1D70Z Performance of Urinary Filtration, Intermittent, Less than 6 Hours Per Day (ICD-10-PCS; 2020-03-18)
PROC: 05HY33Z Insertion of Infusion Device into Upper Vein, Percutaneous Approach (ICD-10-PCS; 2020-03-19)
PROC: B54NZZA Ultrasonography of Left Upper Extremity Veins, Guidance (ICD-10-PCS; 2020-03-19)
PROC: 5A1D70Z Performance of Urinary Filtration, Intermittent, Less than 6 Hours Per Day (ICD-10-PCS; 2020-03-20)
PROC: 5A1D70Z Performance of Urinary Filtration, Intermittent, Less than 6 Hours Per Day (ICD-10-PCS; 2020-03-23)
DX: T80.211A Bloodstream infection due to central venous catheter, initial encounter (principal); A41.02 Sepsis due to Methicillin resistant Staphylococcus aureus; J18.9 Pneumonia, unspecified organism; N18.6 End stage renal disease; R65.20 Severe sepsis without septic shock; I12.0 Hypertensive chronic kidney disease with stage 5 chronic kidney disease or end stage renal disease; G20 Parkinson's disease; E87.6 Hypokalemia; Z20.828 Contact with and (suspected) exposure to other viral communicable diseases; Y84.8 Other medical procedures as the cause of abnormal reaction of the patient, or of later complication, without mention of misadventure at the time of the procedure; Z86.73 Personal history of transient ischemic attack (TIA), and cerebral infarction without residual deficits; Z99.2 Dependence on renal dialysis; Z82.49 Family history of ischemic heart disease and other diseases of the circulatory system; Z85.038 Personal history of other malignant neoplasm of large intestine; Y92.89 Other specified places as the place of occurrence of the external cause; Z88.5 Allergy status to narcotic agent; Z93.3 Colostomy status
CPT/HCPCS: 36415; 36600; 70551; 71045; 71250-TC; 80048; 80053; 80202-TC; 81000-TC; 82550-TC; 82728; 82803-TC; 83605; 83615-TC; 83735-TC; 83880; 84100-TC; 84484; 85007; 85025; 85027; 85384-TC; 85610-TC; 85651-TC; 85730-TC; 86140; 86886; 86900; 86901; 87040-TC; 87081; 87086; 87186-TC; 90935; 90937; 93005; 93306; 93971; 96361; 96365; 96368; 97110-GP; 97112-GP; 97530-GP; 99291; A5061; C1751; G0378; J0456; J0696; J1644; J2001; J2543; J3370; J7030; J7050; U0003-CS

== ENCOUNTER 2020-07-04 07:20 | Emergency (ER) | payer OTHER, SELFPAY ==
[~2020-07-04] VITALS: Ht 175.3 cm; Wt 74.8 kg
[2020-07-04 07:20] VITALS: BP_SYST 148
[~2020-07-04 07:20] MED LIST: CARB1TAB21 PO; FURO-149 PO; LIP10 PO
--- NOTE | 2020-07-04 07:20 | NUR ---
placed in bed 6, triaged at bedside.
--- NOTE | 2020-07-04 07:21 | NUR ---
Vicenta [phone]
--- NOTE | 2020-07-04 07:25 | NUR ---
Pt bib EMS from home s/p fall out of bed this morning. Reports hitting the back of his head, denies LOC or pain at this time. V/S stable, pt is afebrile. Currently resting in bed, will continue to monitor.
--- NOTE | 2020-07-04 07:30 | NUR ---
DARVIN Turpin at bedside examining patient.
--- NOTE | 2020-07-04 07:45 | NUR ---
Patient transported to radiology via gurney, accompanied by staff.
[2020-07-04] MEDS ORDERED: ACETAMINOPHEN 500 MG TABLET PO ONE (08:30)
--- NOTE | 2020-07-04 08:35 | NUR ---
# 20 gauge angiocath placed to LAC. Use of asceptic technique. Opsite placed over site. Blood return noted. Blood for lab drawn from site. Flushed with 10 cc of normal saline. No evidence of infiltration noted. Patient tolerated well.
--- NOTE | 2020-07-04 08:40 | NUR ---
EKG performed at BS by RN. Physician given copy of EKG for review.
--- NOTE | 2020-07-04 08:55 | NUR ---
Radiology at bedside for CXR
[2020-07-04 09:15] LABS: BASOPHILS # (AUTO) 0.1 K/uL (0.0-0.2); EOSINOPHILS # (AUTO) 0.5 K/uL (0.0-0.4); MEAN CORPUSCULAR HEMOGLOBIN 31 pg (27-31); MEAN CORPUSCULAR HGB CONC 33 % (32-36); RED CELL DISTRIBUTION WIDTH 16.1 % (9.0-15.0)
[2020-07-04] MEDS ORDERED: ASPIRIN 325 MG TABLET (ECOTRIN) PO ONE (09:30)
[2020-07-04 09:36] LABS: ANION GAP 7 (5-15); CALCIUM 8.9 mg/dL (8.4-11.0); CHLORIDE 97 mmol/L (98-107); CREATININE 2.24 mg/dL (0.55-1.30); GLUCOSE 130 mg/dL (70-99); POTASSIUM 3.4 mmol/L (3.5-5.1); SODIUM SERUM 135 mmol/L (136-145); UREA NITROGEN, BLOOD 30 mg/dL (8-21); WHITE BLOOD COUNT (AUTO) 12.1 K/uL (4.8-10.8)
[2020-07-04 09:37] LABS: HEMATOCRIT 39.8 % (36-54); RED BLOOD CELL COUNT(AUTO) 4.19 MIL/uL (4.2-6.2)
[2020-07-04 09:38] LABS: LYMPHOCYTES % (AUTO) 26.4 % (20.5-51.5); MEAN CORPUSCULAR VOLUME 95 fL (79.0-98.0); PLATELET COUNT (AUTO) 230 K/uL (130-430)
[2020-07-04 09:39] LABS: BASOPHILS % (AUTO) 0.7 % (0.0-2.0); LYMPHOCYTES # (AUTO) 3.1 K/uL (1.0-5.5); NEUTROPHILS # (AUTO) 7.5 K/uL (1.8-7.7)
[2020-07-04 09:40] LABS: ALANINE AMINOTRANSFERASE 13 U/L (12-78); ALBUMIN 3.5 g/dL (3.4-4.8); ASPARTATE AMINOTRANSFERASE 19 U/L (10-37); TOTAL BILIRUBIN 0.5 mg/dL (0.0-1.0)
--- NOTE | 2020-07-04 10:30 | NUR ---
Patient given written and verbal discharge instructions and verbalizes understanding. ER MD discussed with patient the results and treatment provided. Patient in stable condition. ID arm band removed. IV catheter removed intact and dressing applied, no active bleeding. No prescriptions given. Patient educated on pain management and to follow up with PMD. Pain Scale 0. Opportunity for questions provided and answered. Medication side effect fact sheet provided.
[2020-07-04 10:33] VITALS: BP_SYST 148
== END 2020-07-04 10:33 | disposition home or self-care (01) ==
LOC: SED 07:20
DX: S09.90XA Unspecified injury of head, initial encounter (principal); I10 Essential (primary) hypertension; G20 Parkinson's disease; Z88.5 Allergy status to narcotic agent; Z79.899 Other long term (current) drug therapy; Z86.79 Personal history of other diseases of the circulatory system; W18.09XA Striking against other object with subsequent fall, initial encounter; Y93.89 Activity, other specified; Y92.89 Other specified places as the place of occurrence of the external cause; Y99.8 Other external cause status
CPT/HCPCS: 36415; 70450-TC; 71045; 71100; 80053; 84484; 85025; 93005; 99285

== ENCOUNTER 2021-04-12 15:07 | Inpatient (IN) | payer OTHER, SELFPAY ==
[~2021-04-12] VITALS: Ht 177.8 cm; Wt 92.1 kg
[2021-04-12 15:14] VITALS: BP_SYST 131
[2021-04-12 16:38] LABS: BILIRUBIN,URINE NEGATIVE (NEGATIVE); BLOOD, URINE NEGATIVE (NEGATIVE); COLOR,URINE YELLOW (YELLOW); GLUCOSE,URINE NEGATIVE (NEGATIVE); KETONES,URINE NEGATIVE (NEGATIVE); LEUKOCYTE ESTERASE ,URINE 3+ (NEGATIVE); NITRITE, URINE POSITIVE (NEGATIVE); PH,URINE 6.5 (5.0-8.0); PROTEIN URINE NEGATIVE (NEGATIVE); UROBILINOGEN,URINE 0.2 (0.2-1.0)
[2021-04-12 16:43] LABS: ANION GAP 11 (5-15); CALCIUM 9.3 mg/dL (8.4-11.0); CHLORIDE 94 mmol/L (98-107); CREATININE 2.18 mg/dL (0.55-1.30); GLUCOSE 154 mg/dL (70-99); SODIUM SERUM 134 mmol/L (136-145); UREA NITROGEN, BLOOD 28 mg/dL (8-21)
[2021-04-12 16:49] LABS: BASOPHILS # (AUTO) 0.3 K/uL (0.0-0.2); BASOPHILS % (AUTO) 1.9 % (0.0-2.0); EOSINOPHILS # (AUTO) 0.1 K/uL (0.0-0.4); EOSINOPHILS % (AUTO) 0.9 % (0.0-4.0); HEMATOCRIT 38.3 % (36-54); HEMOGLOBIN 12.6 g/dL (14.0-18.0); LYMPHOCYTES # (AUTO) 3.6 K/uL (1.0-5.5); LYMPHOCYTES % (AUTO) 23.6 % (20.5-51.5); MEAN CORPUSCULAR HEMOGLOBIN 29 pg (27-31); MEAN CORPUSCULAR HGB CONC 33 % (32-36); MEAN CORPUSCULAR VOLUME 89 fL (79.0-98.0); MONOCYTES # (AUTO) 0.9 K/uL (0.0-1.0); MONOCYTES % (AUTO) 5.6 % (1.7-9.3); NEUTROPHILS # (AUTO) 10.4 K/uL (1.8-7.7); PLATELET COUNT (AUTO) 307 K/uL (130-430); PROTHROMBIN TIME 9.9 SECS (9.5-12.5); RED BLOOD CELL COUNT(AUTO) 4.33 MIL/uL (4.2-6.2); RED CELL DISTRIBUTION WIDTH 17.3 % (9.0-15.0); WHITE BLOOD COUNT (AUTO) 15.3 K/uL (4.8-10.8)
[2021-04-12 16:54] LABS: ALANINE AMINOTRANSFERASE 12 U/L (12-78); ALBUMIN 3.4 g/dL (3.4-4.8); ASPARTATE AMINOTRANSFERASE 16 U/L (10-37); TOTAL BILIRUBIN 0.6 mg/dL (0.0-1.0)
[2021-04-12 17:07] LABS: CLARITY/URINE SLIGHTLY HAZY (CLEAR)
[2021-04-12 17:10] LABS: BARBITURATE, URINE NEGATIVE (NEG <=200); BENZODIAZEPINE, URINE NEGATIVE (NEG <=150); CANNABINOID, URINE NEGATIVE (NEG <=50); COCAINE, URINE NEGATIVE (NEG <=150); METHAMPHETAMINES SCREEN,URINE NEGATIVE (NEG <=500); OPIATE, URINE NEGATIVE (NEG <=100); PHENCYCLIDINE SCREEN,URINE NEGATIVE (NEG <=25); UR TRICYCLIC ANTIDEPRESSANTS NEGATIVE (NEG <=300); URINE AMPHETAMINE NEGATIVE (NEG <=500); URINE METHADONE NEGATIVE (NEG <=200); URINE OXYCODONE SCREEN NEGATIVE (NEG <=100); URINE PROPOXYPHENE SCREEN NEGATIVE (NEG <=300)
[2021-04-12 17:20] LABS: BACTERIA,URINE MODERATE /HPF (None Seen); RBC,URINE 0-3 /HPF (0-3); WBC,URINE 50-80 /HPF (0-3)
[2021-04-12 17:24] LABS: MUCUS,URINE None Seen /LPF (None Seen)
[2021-04-12] MEDS ORDERED: MIDO10TA PO (17:35)
[2021-04-12] MEDS ORDERED: FERR236T3 PO (17:35)
[2021-04-12] MEDS ORDERED: POTASSIUM CHLORIDE 20 MEQ TAB.PRT.SR PO ONE (19:15)
[2021-04-12] MEDS ORDERED: cefTRIAXone 1 GM IVPB PREMIX 50 ML IV ONE (19:15)
[2021-04-12] MEDS ORDERED: AMOX500C2 PO ×2 (19:22)
[2021-04-12] MEDS ORDERED: ACETAMINOPHEN 325 MG TABLET PO PRN (22:00)
[2021-04-12] MEDS ORDERED: ALBUTEROL SULFATE 0.083% 2.5 MG/3 ML VIAL.NEB INH PRN (22:00)
[2021-04-12 22:07] VITALS: BP_SYST 107
[2021-04-12] MEDS ORDERED: MIDODRINE HCL 5 MG TABLET (PROAMATINE) PO PRN (22:15)
[2021-04-12 22:41] VITALS: BP_SYST 114
[2021-04-12] MEDS ORDERED: VANCOMYCIN HCL 1 GM/NS PREMIX 250 ML IV ONE (22:45)
[2021-04-12] MEDS: NORMAL SALINE 5 ML DISP.SYRIN IVF SCH (22:45)
[2021-04-12] MEDS ORDERED: VANCOMYCIN HCL 1000 MG/VIAL IV ONE (23:31)
[2021-04-13] VITALS: BP_SYST 135
[2021-04-13] MEDS: NORMAL SALINE 5 ML DISP.SYRIN IVF SCH ×3 (05:53→21:07)
[2021-04-13 06:24] LABS: BASOPHILS # (AUTO) 0.1 K/uL (0.0-0.2); BASOPHILS % (AUTO) 0.8 % (0.0-2.0); EOSINOPHILS # (AUTO) 0.3 K/uL (0.0-0.4); EOSINOPHILS % (AUTO) 2.3 % (0.0-4.0); HEMATOCRIT 37.2 % (36-54); HEMOGLOBIN 12.1 g/dL (14.0-18.0); LYMPHOCYTES # (AUTO) 2.5 K/uL (1.0-5.5); LYMPHOCYTES % (AUTO) 20.2 % (20.5-51.5); MEAN CORPUSCULAR HEMOGLOBIN 29 pg (27-31); MEAN CORPUSCULAR HGB CONC 33 % (32-36); MEAN CORPUSCULAR VOLUME 90 fL (79.0-98.0); MONOCYTES # (AUTO) 1.1 K/uL (0.0-1.0); MONOCYTES % (AUTO) 8.4 % (1.7-9.3); NEUTROPHILS # (AUTO) 8.6 K/uL (1.8-7.7); NEUTROPHILS % (AUTO) 68.3 % (40.0-70.0); PLATELET COUNT (AUTO) 278 K/uL (130-430); RED BLOOD CELL COUNT(AUTO) 4.14 MIL/uL (4.2-6.2); RED CELL DISTRIBUTION WIDTH 17.3 % (9.0-15.0); WHITE BLOOD COUNT (AUTO) 12.6 K/uL (4.8-10.8)
[2021-04-13 07:11] LABS: ALANINE AMINOTRANSFERASE 9 U/L (12-78); ALBUMIN 3.2 g/dL (3.4-4.8); ANION GAP 14 (5-15); ASPARTATE AMINOTRANSFERASE 15 U/L (10-37); CALCIUM 9.1 mg/dL (8.4-11.0); CHLORIDE 96 mmol/L (98-107); CREATININE 2.33 mg/dL (0.55-1.30); GLUCOSE 145 mg/dL (70-99); SODIUM SERUM 139 mmol/L (136-145); TOTAL BILIRUBIN 0.3 mg/dL (0.0-1.0); UREA NITROGEN, BLOOD 33 mg/dL (8-21)
[2021-04-13 08:24] VITALS: BP_SYST 147
[2021-04-13] MEDS: CARBIDOPA/LEVODOPA 25/100 MG TABLET PO SCH ×4 (08:25→21:06)
[2021-04-13] MEDS: FUROSEMIDE 40 MG TABLET PO SCH ×2 (08:25→21:07)
[2021-04-13 08:45] LABS: CHOLESTEROL 149 mg/dL (<200); HDL CHOLESTEROL 38 mg/dL (>45); LDL CHOLESTEROL 71 mg/dL (<100); TRIGLYCERIDES 240 mg/dL (30-150)
[2021-04-13] MEDS ORDERED: POTASSIUM CHLORIDE 20 MEQ TAB.PRT.SR GT ONE (09:30)
[2021-04-13] MEDS: INSULIN REGULAR, HUMAN 100 UNITS/ML, 10 ML VIAL (humuLIN R) SUBCUT PRN ×3 (11:11→21:29)
[2021-04-13 12:20] VITALS: BP_SYST 131
[2021-04-13 16:37] VITALS: BP_SYST 137
[2021-04-13] MEDS ORDERED: cefTRIAXone 1 GM in D5W 50 ML IV SCH (19:00)
[2021-04-13] MEDS ORDERED: ATORVASTATIN 10 MG TABLET PO SCH (21:00)
[2021-04-13 21:31] VITALS: BP_SYST 141
[2021-04-13 23:36] LABS: BILIRUBIN,URINE NEGATIVE (NEGATIVE); BLOOD, URINE NEGATIVE (NEGATIVE); CLARITY/URINE CLEAR (CLEAR); COLOR,URINE YELLOW (YELLOW); GLUCOSE,URINE NEGATIVE (NEGATIVE); KETONES,URINE NEGATIVE (NEGATIVE); LEUKOCYTE ESTERASE ,URINE 1+ (NEGATIVE); NITRITE, URINE NEGATIVE (NEGATIVE); PROTEIN URINE TRACE (NEGATIVE); UROBILINOGEN,URINE 0.2 (0.2-1.0)
[2021-04-13 23:44] LABS: BACTERIA,URINE FEW /HPF (None Seen); WBC,URINE 20-50 /HPF (0-3)
[2021-04-14] VITALS: BP_SYST 115
[2021-04-14] MEDS: NORMAL SALINE 5 ML DISP.SYRIN IVF SCH ×2 (05:33→13:13)
[2021-04-14 06:29] LABS: BASOPHILS # (AUTO) 0.1 K/uL (0.0-0.2); BASOPHILS % (AUTO) 0.7 % (0.0-2.0); EOSINOPHILS # (AUTO) 0.4 K/uL (0.0-0.4); EOSINOPHILS % (AUTO) 2.9 % (0.0-4.0); HEMATOCRIT 37.4 % (36-54); LYMPHOCYTES # (AUTO) 2.4 K/uL (1.0-5.5); LYMPHOCYTES % (AUTO) 20.2 % (20.5-51.5); MEAN CORPUSCULAR HEMOGLOBIN 29 pg (27-31); MEAN CORPUSCULAR HGB CONC 32 % (32-36); MEAN CORPUSCULAR VOLUME 90 fL (79.0-98.0); MONOCYTES % (AUTO) 8.1 % (1.7-9.3); NEUTROPHILS # (AUTO) 8.2 K/uL (1.8-7.7); NEUTROPHILS % (AUTO) 68.1 % (40.0-70.0); PLATELET COUNT (AUTO) 290 K/uL (130-430); RED BLOOD CELL COUNT(AUTO) 4.16 MIL/uL (4.2-6.2); RED CELL DISTRIBUTION WIDTH 17.5 % (9.0-15.0); WHITE BLOOD COUNT (AUTO) 12.1 K/uL (4.8-10.8)
[2021-04-14 07:03] LABS: ALANINE AMINOTRANSFERASE 6 U/L (12-78); ANION GAP 13 (5-15); ASPARTATE AMINOTRANSFERASE 14 U/L (10-37); CALCIUM 8.8 mg/dL (8.4-11.0); CHLORIDE 100 mmol/L (98-107); CREATININE 2.37 mg/dL (0.55-1.30); GLUCOSE 139 mg/dL (70-99); PHOSPHORUS 4.1 mg/dL (2.7-4.5); POTASSIUM 3.5 mmol/L (3.5-5.1); SODIUM SERUM 140 mmol/L (136-145); TOTAL BILIRUBIN 0.4 mg/dL (0.0-1.0); UREA NITROGEN, BLOOD 42 mg/dL (8-21)
[2021-04-14 08:29] VITALS: BP_SYST 120
[2021-04-14 08:41] LABS: C-REACTIVE PROTEIN QUANT 2.4 mg/dL (0-0.5)
[2021-04-14] MEDS: MIDODRINE HCL 5 MG TABLET (PROAMATINE) PO SCH ×2 (09:28→15:21)
[2021-04-14] MEDS: CARBIDOPA/LEVODOPA 25/100 MG TABLET PO SCH ×3 (09:28→17:05)
[2021-04-14 10:25] LABS: ERYTHROCYTE SEDIMENTATION RATE 31 MM/HR (0-15)
[2021-04-14] MEDS ORDERED: MIDO10TA PO (11:05)
[2021-04-14] MEDS ORDERED: LEVO250T58 PO (11:08)
[2021-04-14 12:50] VITALS: BP_SYST 124
[2021-04-14 13:30] VITALS: BP_SYST 139
[2021-04-14 15:26] VITALS: BP_SYST 139
== END 2021-04-14 18:25 | disposition home health service (06) | DRG 312 ==
LOC: SED 15:07 → STU 20:39
PROVIDERS: ADMIT Internal Medicine Hospice and Palliative Medicine; ATTEND Internal Medicine Hospice and Palliative Medicine
DX: I95.1 Orthostatic hypotension (principal); N18.6 End stage renal disease; N39.0 Urinary tract infection, site not specified; E87.1 Hypo-osmolality and hyponatremia; E87.2 Acidosis; I12.0 Hypertensive chronic kidney disease with stage 5 chronic kidney disease or end stage renal disease; E87.6 Hypokalemia; R73.9 Hyperglycemia, unspecified; G20 Parkinson's disease; F02.80 Dementia in other diseases classified elsewhere, unspecified severity, without behavioral disturbance, psychotic disturbance, mood disturbance, and anxiety; E78.5 Hyperlipidemia, unspecified; D72.829 Elevated white blood cell count, unspecified; E78.1 Pure hyperglyceridemia; Z20.822 Contact with and (suspected) exposure to COVID-19; Z99.2 Dependence on renal dialysis; Z85.828 Personal history of other malignant neoplasm of skin; Z85.038 Personal history of other malignant neoplasm of large intestine; Z86.73 Personal history of transient ischemic attack (TIA), and cerebral infarction without residual deficits; Z90.49 Acquired absence of other specified parts of digestive tract; Z88.5 Allergy status to narcotic agent; Z79.899 Other long term (current) drug therapy
CPT/HCPCS: 36415; 70450-TC; 71045; 76376; 80053; 80061; 80307; 81000; 82962; 83605; 83735; 84100; 84484; 85025; 85610-TC; 85651-TC; 85730-TC; 86140; 87040-TC; 87081; 87086; 93005; 93306; 93880; 95816; 96365; 97110-GP; 97116-GP; 97530-GP; 99285; G0378; J0696; J3370; J7060

== ENCOUNTER 2021-07-10 20:22 | Inpatient (IN) | payer OTHER, SELFPAY ==
[~2021-07-10] VITALS: Ht 175.3 cm; Wt 97.3 kg
[~2021-07-10 20:22] MED LIST changes: +FERR236T3 PO; +MIDO10TA PO
[2021-07-10 20:28] VITALS: BP_SYST 142
[2021-07-10] MEDS ORDERED: LIDOCAINE/EPI 1% 1:100000 20 ML VIAL INJ ONE ×2 (20:42→20:45)
[2021-07-10] MEDS ORDERED: ASCO500T20 PO (20:44)
[2021-07-10] MEDS ORDERED: FURO-149 PO (20:44)
[2021-07-10] MEDS ORDERED: FOLI0.8T42 PO (20:44)
[2021-07-10] MEDS ORDERED: MIDO5TAB4 PO (20:44)
[2021-07-10] MEDS ORDERED: BACITRACIN 1 GM OINT TP ONE (20:45)
[2021-07-10] MEDS ORDERED: DIPH-TET-PERTUS Vaccine 0.5 ML VIAL (ADACEL) I.M. ONE (20:45)
[2021-07-10 21:11] LABS: MEAN CORPUSCULAR VOLUME 91 fL (79.0-98.0); WHITE BLOOD COUNT (AUTO) 16.1 K/uL (4.8-10.8)
[2021-07-10 21:18] LABS: BASOPHILS # (AUTO) 0.2 K/uL (0.0-0.2); EOSINOPHILS # (AUTO) 0.3 K/uL (0.0-0.4); EOSINOPHILS % (AUTO) 2.1 % (0.0-4.0); HEMATOCRIT 37.5 % (36-54); HEMOGLOBIN 12.3 g/dL (14.0-18.0); LYMPHOCYTES # (AUTO) 4.8 K/uL (1.0-5.5); LYMPHOCYTES % (AUTO) 29.8 % (20.5-51.5); MEAN CORPUSCULAR HEMOGLOBIN 30 pg (27-31); MEAN CORPUSCULAR HGB CONC 33 % (32-36); MONOCYTES # (AUTO) 1.2 K/uL (0.0-1.0); MONOCYTES % (AUTO) 7.6 % (1.7-9.3); NEUTROPHILS # (AUTO) 9.6 K/uL (1.8-7.7); NEUTROPHILS % (AUTO) 59.5 % (40.0-70.0); PLATELET COUNT (AUTO) 231 K/uL (130-430); RED BLOOD CELL COUNT(AUTO) 4.14 MIL/uL (4.2-6.2); RED CELL DISTRIBUTION WIDTH 17.8 % (9.0-15.0)
[2021-07-10 21:23] LABS: ANION GAP 14 (5-15); CALCIUM 8.7 mg/dL (8.4-11.0); CHLORIDE 96 mmol/L (98-107); CREATININE 2.37 mg/dL (0.55-1.30); GLUCOSE 234 mg/dL (70-99); POTASSIUM 3.4 mmol/L (3.5-5.1); SODIUM SERUM 138 mmol/L (136-145); UREA NITROGEN, BLOOD 34 mg/dL (8-21)
[2021-07-10 21:33] LABS: ALANINE AMINOTRANSFERASE 22 U/L (12-78); ALBUMIN 3.3 g/dL (3.4-4.8); ASPARTATE AMINOTRANSFERASE 21 U/L (10-37); TOTAL BILIRUBIN 0.2 mg/dL (0.0-1.0)
[2021-07-10 21:36] LABS: INR 0.9 (0.80-1.20); PROTHROMBIN TIME 9.9 SECS (9.5-12.5)
[2021-07-10] MEDS ORDERED: CARB1TAB21 PO (21:58)
[2021-07-10 22:44] LABS: HEMATOCRIT 37.8 % (36-54); HEMOGLOBIN 12.2 g/dL (14.0-18.0); MEAN CORPUSCULAR HEMOGLOBIN 29 pg (27-31); MEAN CORPUSCULAR HGB CONC 32 % (32-36); MEAN CORPUSCULAR VOLUME 90 fL (79.0-98.0); PLATELET COUNT (AUTO) 239 K/uL (130-430); RED BLOOD CELL COUNT(AUTO) 4.18 MIL/uL (4.2-6.2); WHITE BLOOD COUNT (AUTO) 16.3 K/uL (4.8-10.8)
[2021-07-11] VITALS (8 sets, daily range): BP systolic 114–161
[2021-07-11] MEDS ORDERED: cefTRIAXone 1 GM in D5W 50 ML IV ONE (02:00)
[2021-07-11] MEDS ORDERED: AZITHROMYCIN 500 MG in NS 250 ML IV ONE (02:00)
[2021-07-11] MEDS ORDERED: cefTRIAXone 1 GM VIAL ONE (02:09)
[2021-07-11] MEDS ORDERED: AZITHROMYCIN 500 MG/VIAL (ZITHROMAX) IV ONE (02:28)
[2021-07-11] MEDS ORDERED: ACETAMINOPHEN 325 MG TABLET PO PRN ×2 (06:30→07:30)
[2021-07-11] MEDS ORDERED: MIDODRINE HCL 5 MG TABLET (PROAMATINE) PO PRN (06:30)
[2021-07-11] MEDS ORDERED: LORazepam 2 MG/ML VIAL IVP PRN (06:30)
[2021-07-11] MEDS ORDERED: ONDANSETRON HCL 4 MG/2 ML VIAL IVP PRN (06:30)
[2021-07-11] MEDS: IPRATROPIUM BROM 0.5 MG/2.5 ML VIAL.NEB (ATROVENT) INH SCH ×4 (07:40→22:54)
[2021-07-11] MEDS: ALBUTEROL SULFATE 0.083% 2.5 MG/3 ML VIAL.NEB INH SCH ×5 (07:40→22:54)
[2021-07-11] MEDS: ASCORBIC ACID 500 MG TABLET PO SCH (08:42)
[2021-07-11] MEDS: FUROSEMIDE 40 MG TABLET PO SCH ×2 (08:42→21:13)
[2021-07-11] MEDS: NEPHROVITE, (FOLIC ACID/VITAMIN B COMP W-C 1 TAB) PO SCH (08:42)
[2021-07-11] MEDS ORDERED: CARBIDOPA/LEVODOPA 25/100 MG TABLET PO SCH (09:00)
[2021-07-11] MEDS ORDERED: MIDODRINE HCL 5 MG TABLET (PROAMATINE) PO ONE (10:30)
[2021-07-11] MEDS ORDERED: CARBIDOPA/LEVODOPA 25/250 MG TABLET PO ONE (10:45)
[2021-07-11] MEDS ORDERED: CARBIDOPA/LEVODOPA 25/100 MG TABLET PO ONE (10:45)
[2021-07-11] MEDS: FERROUS GLUCONATE 324 MG TABLET PO SCH (10:52)
[2021-07-11 11:28] LABS: BASOPHILS # (AUTO) 0.2 K/uL (0.0-0.2); BASOPHILS % (AUTO) 1.1 % (0.0-2.0); EOSINOPHILS # (AUTO) 0.1 K/uL (0.0-0.4); EOSINOPHILS % (AUTO) 0.9 % (0.0-4.0); HEMATOCRIT 34.8 % (36-54); HEMOGLOBIN 11.2 g/dL (14.0-18.0); LYMPHOCYTES # (AUTO) 2.5 K/uL (1.0-5.5); LYMPHOCYTES % (AUTO) 17.2 % (20.5-51.5); MEAN CORPUSCULAR HEMOGLOBIN 29 pg (27-31); MEAN CORPUSCULAR HGB CONC 32 % (32-36); MEAN CORPUSCULAR VOLUME 90 fL (79.0-98.0); MONOCYTES # (AUTO) 1.1 K/uL (0.0-1.0); MONOCYTES % (AUTO) 7.5 % (1.7-9.3); NEUTROPHILS # (AUTO) 10.7 K/uL (1.8-7.7); NEUTROPHILS % (AUTO) 73.3 % (40.0-70.0); PLATELET COUNT (AUTO) 263 K/uL (130-430); RED BLOOD CELL COUNT(AUTO) 3.85 MIL/uL (4.2-6.2); RED CELL DISTRIBUTION WIDTH 17.9 % (9.0-15.0); WHITE BLOOD COUNT (AUTO) 14.6 K/uL (4.8-10.8)
[2021-07-11] MEDS: CARBIDOPA/LEVODOPA 25/250 MG TABLET PO SCH ×3 (13:38→21:11)
[2021-07-11] MEDS: metroNIDAZOLE 500 mg/NS 100 ML IV SCH ×2 (13:39→22:38)
[2021-07-11] MEDS: NORMAL SALINE 5 ML DISP.SYRIN IVF SCH ×2 (13:45→22:39)
[2021-07-11] MEDS: guaiFENesin/DEXTROMETHORPHAN 10 ML UDC PO PRN (13:49)
[2021-07-11] MEDS ORDERED: NORMAL SALINE 5 ML DISP.SYRIN IVF SCH (14:00)
[2021-07-11] MEDS: MIDODRINE HCL 5 MG TABLET (PROAMATINE) PO SCH ×2 (16:29→21:14)
[2021-07-11] MEDS: CARBIDOPA/LEVODOPA 25/100 MG TABLET PO SCH (21:11)
[2021-07-11] MEDS: ATORVASTATIN 10 MG TABLET PO SCH (21:14)
[2021-07-11] MEDS: cefTRIAXone 1 GM IVPB PREMIX 50 ML IV SCH (21:24)
[2021-07-11] MEDS ORDERED: AZITHROMYCIN 500 MG in NS 250 ML IV SCH (22:00)
[2021-07-12] MEDS: IPRATROPIUM BROM 0.5 MG/2.5 ML VIAL.NEB (ATROVENT) INH SCH ×6 (03:40→23:00)
[2021-07-12] MEDS: ALBUTEROL SULFATE 0.083% 2.5 MG/3 ML VIAL.NEB INH SCH ×6 (03:40→23:00)
[2021-07-12] MEDS: metroNIDAZOLE 500 mg/NS 100 ML IV SCH ×3 (05:30→21:48)
[2021-07-12] MEDS: NORMAL SALINE 5 ML DISP.SYRIN IVF SCH ×3 (05:31→21:48)
[2021-07-12 06:46] LABS: BASOPHILS # (AUTO) 0.1 K/uL (0.0-0.2); BASOPHILS % (AUTO) 0.8 % (0.0-2.0); EOSINOPHILS # (AUTO) 0.2 K/uL (0.0-0.4); EOSINOPHILS % (AUTO) 1.7 % (0.0-4.0); HEMATOCRIT 33.5 % (36-54); HEMOGLOBIN 10.9 g/dL (14.0-18.0); LYMPHOCYTES # (AUTO) 1.9 K/uL (1.0-5.5); LYMPHOCYTES % (AUTO) 16.1 % (20.5-51.5); MEAN CORPUSCULAR HEMOGLOBIN 29 pg (27-31); MEAN CORPUSCULAR HGB CONC 33 % (32-36); MEAN CORPUSCULAR VOLUME 90 fL (79.0-98.0); MONOCYTES % (AUTO) 8.3 % (1.7-9.3); NEUTROPHILS # (AUTO) 8.8 K/uL (1.8-7.7); NEUTROPHILS % (AUTO) 73.1 % (40.0-70.0); PLATELET COUNT (AUTO) 257 K/uL (130-430); RED BLOOD CELL COUNT(AUTO) 3.72 MIL/uL (4.2-6.2); RED CELL DISTRIBUTION WIDTH 18.2 % (9.0-15.0); WHITE BLOOD COUNT (AUTO) 12.1 K/uL (4.8-10.8)
[2021-07-12 07:49] VITALS: BP_SYST 124
[2021-07-12 07:56] LABS: ALANINE AMINOTRANSFERASE 16 U/L (12-78); ALBUMIN 3.1 g/dL (3.4-4.8); ANION GAP 13 (5-15); ASPARTATE AMINOTRANSFERASE 13 U/L (10-37); CALCIUM 8.7 mg/dL (8.4-11.0); CHLORIDE 101 mmol/L (98-107); CREATININE 1.85 mg/dL (0.55-1.30); GLUCOSE 156 mg/dL (70-99); POTASSIUM 3.2 mmol/L (3.5-5.1); SODIUM SERUM 141 mmol/L (136-145); THYROID STIMULATING HORMONE 1.34 uIu/mL (0.36-3.74); TOTAL BILIRUBIN 0.4 mg/dL (0.0-1.0); UREA NITROGEN, BLOOD 21 mg/dL (8-21)
[2021-07-12] MEDS: CARBIDOPA/LEVODOPA 25/250 MG TABLET PO SCH ×4 (08:06→21:40)
[2021-07-12] MEDS: CARBIDOPA/LEVODOPA 25/100 MG TABLET PO SCH ×2 (08:06→21:40)
[2021-07-12] MEDS: FUROSEMIDE 40 MG TABLET PO SCH ×2 (08:07→21:47)
[2021-07-12] MEDS: FERROUS GLUCONATE 324 MG TABLET PO SCH (08:07)
[2021-07-12] MEDS: MIDODRINE HCL 5 MG TABLET (PROAMATINE) PO SCH ×3 (08:07→21:48)
[2021-07-12] MEDS: NEPHROVITE, (FOLIC ACID/VITAMIN B COMP W-C 1 TAB) PO SCH (08:08)
[2021-07-12] MEDS: ASCORBIC ACID 500 MG TABLET PO SCH (08:21)
[2021-07-12] MEDS: guaiFENesin/DEXTROMETHORPHAN 10 ML UDC PO PRN (08:24)
[2021-07-12 12:00] VITALS: BP_SYST 131
[2021-07-12 16:00] VITALS: BP_SYST 124
[2021-07-12 20:00] VITALS: BP_SYST 119
[2021-07-12] MEDS: cefTRIAXone 1 GM IVPB PREMIX 50 ML IV SCH (21:12)
[2021-07-12] MEDS: ATORVASTATIN 10 MG TABLET PO SCH (21:48)
[2021-07-13 01:18] VITALS: BP_SYST 127
[2021-07-13] MEDS: NORMAL SALINE 5 ML DISP.SYRIN IVF SCH ×3 (06:31→20:44)
[2021-07-13] MEDS: metroNIDAZOLE 500 mg/NS 100 ML IV SCH ×3 (06:32→22:35)
[2021-07-13] MEDS: IPRATROPIUM BROM 0.5 MG/2.5 ML VIAL.NEB (ATROVENT) INH SCH ×4 (07:24→22:22)
[2021-07-13] MEDS: ALBUTEROL SULFATE 0.083% 2.5 MG/3 ML VIAL.NEB INH SCH ×4 (07:24→22:22)
[2021-07-13 08:00] VITALS: BP_SYST 142
[2021-07-13] MEDS: CARBIDOPA/LEVODOPA 25/250 MG TABLET PO SCH ×4 (08:00→20:42)
[2021-07-13] MEDS: CARBIDOPA/LEVODOPA 25/100 MG TABLET PO SCH ×2 (08:00→20:42)
[2021-07-13] MEDS: NEPHROVITE, (FOLIC ACID/VITAMIN B COMP W-C 1 TAB) PO SCH (09:00)
[2021-07-13] MEDS: FUROSEMIDE 40 MG TABLET PO SCH ×2 (09:00→20:43)
[2021-07-13] MEDS: FERROUS GLUCONATE 324 MG TABLET PO SCH (09:00)
[2021-07-13] MEDS: MIDODRINE HCL 5 MG TABLET (PROAMATINE) PO SCH ×3 (09:00→20:42)
[2021-07-13] MEDS: ASCORBIC ACID 500 MG TABLET PO SCH (09:00)
[2021-07-13] MEDS ORDERED: KCL 20 mEq in 100 mL (PREMIX) 100 ML IV ONE (12:00)
[2021-07-13 12:47] VITALS: BP_SYST 121
[2021-07-13 16:53] VITALS: BP_SYST 128
[2021-07-13] MEDS ORDERED: NS 1000 ML IV.SOLN IV ONE ×2 (16:55→18:02)
[2021-07-13] MEDS ORDERED: LR 1,000 ML IV.SOLN IV ONE (16:55)
[2021-07-13] MEDS ORDERED: cefOXitin 1 GM IVPB PREMIX 50 ML IV ONE (16:55)
[2021-07-13] MEDS ORDERED: SEVOFLURANE 15 MIN GAS INH ONE (16:55)
[2021-07-13] MEDS ORDERED: NS IRRIG SOLN 1000 ML IR ONE ×2 (16:55→18:02)
[2021-07-13] MEDS ORDERED: ONDANSETRON HCL 4 MG/2 ML VIAL ONE ×2 (16:55→18:02)
[2021-07-13] MEDS ORDERED: DEXAMETHASONE SOD PHOSPHATE 4 MG/ML VIAL ONE (16:55)
[2021-07-13] MEDS ORDERED: PHENYLEPHRINE HCL 10 MG/ML VIAL (NEOSYNEPHRINE) ONE (16:55)
[2021-07-13] MEDS ORDERED: PROPOFOL 200MG/ 20ML VIAL (DIPRIVAN) IV ONE (16:55)
[2021-07-13] MEDS ORDERED: ROCURONIUM BROMIDE 10 MG/ML (ZEMURON) ONE (16:55)
[2021-07-13] MEDS ORDERED: BUPIVACAINE /EPINEPHRINE/PF 0.25% 30 ML VIAL INJ ONE ×2 (16:55→18:02)
[2021-07-13] MEDS ORDERED: SUCCINYLCHOLINE CHLORIDE 20 MG/ML(QUELICIN) ONE (16:55)
[2021-07-13] MEDS ORDERED: WATER FOR IRRIGATION,STERILE 1,000 ML IRRIG.SOLN IR ONE ×2 (16:55→18:02)
[2021-07-13] MEDS ORDERED: GLYCOPYRROLATE 0.2 MG/ML VIAL ONE (16:55)
[2021-07-13] MEDS ORDERED: MORPHINE 4 MG INJ. 4 MG/ML VIAL IVP PRN (18:00)
[2021-07-13] MEDS ORDERED: ONDANSETRON HCL 4 MG/2 ML VIAL IVP PRN ×2 (18:00)
[2021-07-13] MEDS ORDERED: LR 500 ML IV SCH (18:00)
[2021-07-13] MEDS ORDERED: METOCLOPRAMIDE HCL 10 MG/2 ML VIAL ONE (18:02)
[2021-07-13] MEDS ORDERED: MIDAZOLAM HCL 5 MG/ML VIAL (VERSED) IV ONE (18:02)
[2021-07-13] MEDS ORDERED: fentaNYL CITRATE 250 MCG/5 ML AMP ONE (18:02)
[2021-07-13 19:00] VITALS: BP_SYST 115
[2021-07-13 20:00] VITALS: BP_SYST 128
[2021-07-13] MEDS: cefTRIAXone 1 GM IVPB PREMIX 50 ML IV SCH (20:04)
[2021-07-13] MEDS: ATORVASTATIN 10 MG TABLET PO SCH (20:42)
[2021-07-13] MEDS: guaiFENesin/DEXTROMETHORPHAN 10 ML UDC PO PRN (22:46)
[2021-07-14 00:37] VITALS: BP_SYST 126
[2021-07-14] MEDS: ALBUTEROL SULFATE 0.083% 2.5 MG/3 ML VIAL.NEB INH SCH ×6 (03:56→23:26)
[2021-07-14] MEDS: IPRATROPIUM BROM 0.5 MG/2.5 ML VIAL.NEB (ATROVENT) INH SCH ×6 (03:57→23:26)
[2021-07-14] MEDS: metroNIDAZOLE 500 mg/NS 100 ML IV SCH ×3 (06:11→22:42)
[2021-07-14 06:46] LABS: BASOPHILS # (AUTO) 0.1 K/uL (0.0-0.2); BASOPHILS % (AUTO) 0.9 % (0.0-2.0); EOSINOPHILS # (AUTO) 0.5 K/uL (0.0-0.4); EOSINOPHILS % (AUTO) 3.7 % (0.0-4.0); HEMATOCRIT 35.2 % (36-54); HEMOGLOBIN 11.2 g/dL (14.0-18.0); LYMPHOCYTES # (AUTO) 2.3 K/uL (1.0-5.5); LYMPHOCYTES % (AUTO) 17.6 % (20.5-51.5); MEAN CORPUSCULAR HEMOGLOBIN 29 pg (27-31); MEAN CORPUSCULAR HGB CONC 32 % (32-36); MEAN CORPUSCULAR VOLUME 91 fL (79.0-98.0); MONOCYTES # (AUTO) 1.2 K/uL (0.0-1.0); MONOCYTES % (AUTO) 8.6 % (1.7-9.3); NEUTROPHILS # (AUTO) 9.2 K/uL (1.8-7.7); NEUTROPHILS % (AUTO) 69.2 % (40.0-70.0); PLATELET COUNT (AUTO) 272 K/uL (130-430); RED BLOOD CELL COUNT(AUTO) 3.85 MIL/uL (4.2-6.2); RED CELL DISTRIBUTION WIDTH 18.7 % (9.0-15.0); WHITE BLOOD COUNT (AUTO) 13.3 K/uL (4.8-10.8)
[2021-07-14 06:52] LABS: ALANINE AMINOTRANSFERASE 9 U/L (12-78); ALBUMIN 3.1 g/dL (3.4-4.8); ANION GAP 12 (5-15); ASPARTATE AMINOTRANSFERASE 10 U/L (10-37); CALCIUM 8.9 mg/dL (8.4-11.0); CHLORIDE 103 mmol/L (98-107); CREATININE 2.38 mg/dL (0.55-1.30); GLUCOSE 138 mg/dL (70-99); PHOSPHORUS 5.1 mg/dL (2.7-4.5); POTASSIUM 3.7 mmol/L (3.5-5.1); SODIUM SERUM 141 mmol/L (136-145); TOTAL BILIRUBIN 0.2 mg/dL (0.0-1.0); UREA NITROGEN, BLOOD 40 mg/dL (8-21)
[2021-07-14] MEDS: NORMAL SALINE 5 ML DISP.SYRIN IVF SCH ×3 (06:55→21:01)
[2021-07-14 08:00] VITALS: BP_SYST 154
[2021-07-14] MEDS: CARBIDOPA/LEVODOPA 25/250 MG TABLET PO SCH ×4 (09:11→21:00)
[2021-07-14] MEDS: NEPHROVITE, (FOLIC ACID/VITAMIN B COMP W-C 1 TAB) PO SCH (09:11)
[2021-07-14] MEDS: FUROSEMIDE 40 MG TABLET PO SCH (09:12)
[2021-07-14] MEDS: FERROUS GLUCONATE 324 MG TABLET PO SCH (09:12)
[2021-07-14] MEDS: MIDODRINE HCL 5 MG TABLET (PROAMATINE) PO SCH ×3 (09:13→21:01)
[2021-07-14] MEDS: CARBIDOPA/LEVODOPA 25/100 MG TABLET PO SCH ×2 (09:13→21:01)
[2021-07-14] MEDS: ASCORBIC ACID 500 MG TABLET PO SCH (09:13)
[2021-07-14] MEDS ORDERED: NS 500 ML IV ONE (09:45)
[2021-07-14] MEDS ORDERED: NORFLURANE/HFC 245FA 103.5 ML SPRAY TP ONE (11:15)
[2021-07-14 11:59] VITALS: BP_SYST 142
[2021-07-14] MEDS ORDERED: ALBUMIN HUMAN 25% 100 ML IV ONE (14:45)
[2021-07-14 16:16] VITALS: BP_SYST 94
[2021-07-14 20:00] VITALS: BP_SYST 134
[2021-07-14] MEDS: guaiFENesin/DEXTROMETHORPHAN 10 ML UDC PO PRN (21:00)
[2021-07-14] MEDS: ATORVASTATIN 10 MG TABLET PO SCH (21:01)
[2021-07-14] MEDS: cefTRIAXone 1 GM IVPB PREMIX 50 ML IV SCH (21:35)
[2021-07-14] MEDS: HYDROcodone/ACETAMIN 5-325 MG TAB (NORCO/ VICODIN) PO PRN (23:10)
[2021-07-15 01:17] VITALS: BP_SYST 130
[2021-07-15] MEDS: ALBUTEROL SULFATE 0.083% 2.5 MG/3 ML VIAL.NEB INH SCH ×6 (03:49→23:38)
[2021-07-15] MEDS: IPRATROPIUM BROM 0.5 MG/2.5 ML VIAL.NEB (ATROVENT) INH SCH ×6 (03:50→23:39)
[2021-07-15] MEDS: NORMAL SALINE 5 ML DISP.SYRIN IVF SCH ×3 (06:07→21:14)
[2021-07-15] MEDS: metroNIDAZOLE 500 mg/NS 100 ML IV SCH ×3 (06:21→22:07)
[2021-07-15 07:08] LABS: BASOPHILS # (AUTO) 0.1 K/uL (0.0-0.2); BASOPHILS % (AUTO) 0.4 % (0.0-2.0); EOSINOPHILS # (AUTO) 0.6 K/uL (0.0-0.4); EOSINOPHILS % (AUTO) 4.4 % (0.0-4.0); HEMOGLOBIN 11.1 g/dL (14.0-18.0); LYMPHOCYTES # (AUTO) 2.3 K/uL (1.0-5.5); LYMPHOCYTES % (AUTO) 17.2 % (20.5-51.5); MEAN CORPUSCULAR HEMOGLOBIN 29 pg (27-31); MEAN CORPUSCULAR HGB CONC 32 % (32-36); MEAN CORPUSCULAR VOLUME 92 fL (79.0-98.0); MONOCYTES # (AUTO) 1.2 K/uL (0.0-1.0); NEUTROPHILS # (AUTO) 9.4 K/uL (1.8-7.7); PLATELET COUNT (AUTO) 260 K/uL (130-430); RED BLOOD CELL COUNT(AUTO) 3.82 MIL/uL (4.2-6.2); RED CELL DISTRIBUTION WIDTH 18.1 % (9.0-15.0); WHITE BLOOD COUNT (AUTO) 13.6 K/uL (4.8-10.8)
[2021-07-15 08:00] VITALS: BP_SYST 123
[2021-07-15] MEDS: ASCORBIC ACID 500 MG TABLET PO SCH (09:03)
[2021-07-15] MEDS: CARBIDOPA/LEVODOPA 25/100 MG TABLET PO SCH ×2 (09:03→21:13)
[2021-07-15] MEDS: FERROUS GLUCONATE 324 MG TABLET PO SCH (09:03)
[2021-07-15] MEDS: MIDODRINE HCL 5 MG TABLET (PROAMATINE) PO SCH ×3 (09:03→21:13)
[2021-07-15] MEDS: NEPHROVITE, (FOLIC ACID/VITAMIN B COMP W-C 1 TAB) PO SCH (09:03)
[2021-07-15] MEDS: CARBIDOPA/LEVODOPA 25/250 MG TABLET PO SCH ×4 (09:04→21:13)
[2021-07-15 10:07] LABS: ANION GAP 8 (5-15); CALCIUM 8.6 mg/dL (8.4-11.0); CHLORIDE 101 mmol/L (98-107); CREATININE 2.27 mg/dL (0.55-1.30); GLUCOSE 148 mg/dL (70-99); PHOSPHORUS 4.8 mg/dL (2.7-4.5); POTASSIUM 3.8 mmol/L (3.5-5.1); SODIUM SERUM 138 mmol/L (136-145); UREA NITROGEN, BLOOD 39 mg/dL (8-21)
[2021-07-15 16:01] VITALS: BP_SYST 112
[2021-07-15 20:00] VITALS: BP_SYST 148
[2021-07-15] MEDS: ATORVASTATIN 10 MG TABLET PO SCH (21:13)
[2021-07-15] MEDS: cefTRIAXone 1 GM IVPB PREMIX 50 ML IV SCH (21:13)
[2021-07-15] MEDS: EMOLLIENT COMBINATION NO.73 78 GM CREAM..G. TP SCH (21:14)
[2021-07-16 00:45] VITALS: BP_SYST 138
[2021-07-16] MEDS: IPRATROPIUM BROM 0.5 MG/2.5 ML VIAL.NEB (ATROVENT) INH SCH ×5 (03:37→19:40)
[2021-07-16] MEDS: ALBUTEROL SULFATE 0.083% 2.5 MG/3 ML VIAL.NEB INH SCH ×5 (03:37→19:40)
[2021-07-16] MEDS: metroNIDAZOLE 500 mg/NS 100 ML IV SCH ×3 (05:29→21:16)
[2021-07-16] MEDS: NORMAL SALINE 5 ML DISP.SYRIN IVF SCH ×3 (05:29→22:00)
[2021-07-16 07:41] LABS: BASOPHILS # (AUTO) 0.2 K/uL (0.0-0.2); BASOPHILS % (AUTO) 1.3 % (0.0-2.0); EOSINOPHILS # (AUTO) 0.6 K/uL (0.0-0.4); EOSINOPHILS % (AUTO) 4.2 % (0.0-4.0); HEMATOCRIT 34.8 % (36-54); HEMOGLOBIN 11.1 g/dL (14.0-18.0); LYMPHOCYTES # (AUTO) 2.2 K/uL (1.0-5.5); LYMPHOCYTES % (AUTO) 16.2 % (20.5-51.5); MEAN CORPUSCULAR HEMOGLOBIN 30 pg (27-31); MEAN CORPUSCULAR HGB CONC 32 % (32-36); MEAN CORPUSCULAR VOLUME 93 fL (79.0-98.0); MONOCYTES # (AUTO) 1.4 K/uL (0.0-1.0); MONOCYTES % (AUTO) 9.8 % (1.7-9.3); NEUTROPHILS # (AUTO) 9.5 K/uL (1.8-7.7); NEUTROPHILS % (AUTO) 68.5 % (40.0-70.0); PLATELET COUNT (AUTO) 223 K/uL (130-430); RED BLOOD CELL COUNT(AUTO) 3.73 MIL/uL (4.2-6.2); WHITE BLOOD COUNT (AUTO) 13.8 K/uL (4.8-10.8)
[2021-07-16 08:00] VITALS: BP_SYST 119
[2021-07-16] MEDS: ASCORBIC ACID 500 MG TABLET PO SCH (08:11)
[2021-07-16] MEDS: CARBIDOPA/LEVODOPA 25/100 MG TABLET PO SCH ×2 (08:11→21:15)
[2021-07-16] MEDS: CARBIDOPA/LEVODOPA 25/250 MG TABLET PO SCH ×4 (08:11→21:15)
[2021-07-16] MEDS: FERROUS GLUCONATE 324 MG TABLET PO SCH (08:11)
[2021-07-16] MEDS: MIDODRINE HCL 5 MG TABLET (PROAMATINE) PO SCH ×3 (08:11→21:16)
[2021-07-16] MEDS: NEPHROVITE, (FOLIC ACID/VITAMIN B COMP W-C 1 TAB) PO SCH (08:11)
[2021-07-16] MEDS: EMOLLIENT COMBINATION NO.73 78 GM CREAM..G. TP SCH ×2 (09:00→21:40)
[2021-07-16] MEDS: BALSAM PERU/CASTOR OIL 60 GM OINT...G. TP SCH (09:00)
[2021-07-16 09:24] LABS: ANION GAP 13 (5-15); CHLORIDE 103 mmol/L (98-107); CREATININE 2.15 mg/dL (0.55-1.30); GLUCOSE 140 mg/dL (70-99); SODIUM SERUM 140 mmol/L (136-145); UREA NITROGEN, BLOOD 49 mg/dL (8-21)
[2021-07-16] MEDS ORDERED: ALBUMIN HUMAN 25% 100 ML IV ONE (09:45)
[2021-07-16 12:30] VITALS: BP_SYST 121
[2021-07-16 16:33] VITALS: BP_SYST 124
[2021-07-16] MEDS: cefTRIAXone 1 GM IVPB PREMIX 50 ML IV SCH (21:15)
[2021-07-16] MEDS: ATORVASTATIN 10 MG TABLET PO SCH (21:15)
[2021-07-16] MEDS: HYDROmorphone 2 MG/ML VIAL IVP PRN (21:19)
[2021-07-16 23:33] VITALS: BP_SYST 131
[2021-07-17] VITALS (7 sets, daily range): BP systolic 129–135
[2021-07-17] MEDS: ALBUTEROL SULFATE 0.083% 2.5 MG/3 ML VIAL.NEB INH SCH ×7 (02:01→23:13)
[2021-07-17] MEDS: IPRATROPIUM BROM 0.5 MG/2.5 ML VIAL.NEB (ATROVENT) INH SCH ×7 (02:01→23:13)
[2021-07-17] MEDS: HYDROcodone/ACETAMIN 5-325 MG TAB (NORCO/ VICODIN) PO PRN (03:02)
[2021-07-17] MEDS: guaiFENesin/DEXTROMETHORPHAN 10 ML UDC PO PRN ×2 (03:12→10:34)
[2021-07-17] MEDS: HYDROmorphone 2 MG/ML VIAL IVP PRN (05:01)
[2021-07-17] MEDS: metroNIDAZOLE 500 mg/NS 100 ML IV SCH ×3 (06:53→22:10)
[2021-07-17] MEDS: NORMAL SALINE 5 ML DISP.SYRIN IVF SCH ×3 (06:54→22:11)
[2021-07-17 07:40] LABS: BASOPHILS # (AUTO) 0.1 K/uL (0.0-0.2); BASOPHILS % (AUTO) 0.8 % (0.0-2.0); EOSINOPHILS # (AUTO) 0.4 K/uL (0.0-0.4); EOSINOPHILS % (AUTO) 2.8 % (0.0-4.0); HEMATOCRIT 33.8 % (36-54); LYMPHOCYTES # (AUTO) 2.1 K/uL (1.0-5.5); LYMPHOCYTES % (AUTO) 16.9 % (20.5-51.5); MEAN CORPUSCULAR HEMOGLOBIN 30 pg (27-31); MEAN CORPUSCULAR HGB CONC 33 % (32-36); MEAN CORPUSCULAR VOLUME 91 fL (79.0-98.0); MONOCYTES % (AUTO) 8.1 % (1.7-9.3); NEUTROPHILS # (AUTO) 8.9 K/uL (1.8-7.7); NEUTROPHILS % (AUTO) 71.4 % (40.0-70.0); PLATELET COUNT (AUTO) 289 K/uL (130-430); RED BLOOD CELL COUNT(AUTO) 3.72 MIL/uL (4.2-6.2); RED CELL DISTRIBUTION WIDTH 18.3 % (9.0-15.0); WHITE BLOOD COUNT (AUTO) 12.5 K/uL (4.8-10.8)
[2021-07-17] MEDS: NEPHROVITE, (FOLIC ACID/VITAMIN B COMP W-C 1 TAB) PO SCH (08:30)
[2021-07-17] MEDS: FERROUS GLUCONATE 324 MG TABLET PO SCH (08:30)
[2021-07-17] MEDS: CARBIDOPA/LEVODOPA 25/250 MG TABLET PO SCH ×4 (08:31→22:09)
[2021-07-17] MEDS: CARBIDOPA/LEVODOPA 25/100 MG TABLET PO SCH ×2 (08:31→22:09)
[2021-07-17] MEDS: ASCORBIC ACID 500 MG TABLET PO SCH (08:31)
[2021-07-17] MEDS: MIDODRINE HCL 5 MG TABLET (PROAMATINE) PO SCH ×3 (08:32→22:09)
[2021-07-17] MEDS: BALSAM PERU/CASTOR OIL 60 GM OINT...G. TP SCH (08:33)
[2021-07-17] MEDS: EMOLLIENT COMBINATION NO.73 78 GM CREAM..G. TP SCH ×2 (08:33→21:00)
[2021-07-17 09:00] LABS: ANION GAP 13 (5-15); CALCIUM 9.2 mg/dL (8.4-11.0); CHLORIDE 102 mmol/L (98-107); CREATININE 2.11 mg/dL (0.55-1.30); GLUCOSE 158 mg/dL (70-99); PHOSPHORUS 4.2 mg/dL (2.7-4.5); POTASSIUM 4.2 mmol/L (3.5-5.1); SODIUM SERUM 139 mmol/L (136-145); UREA NITROGEN, BLOOD 47 mg/dL (8-21)
[2021-07-17 10:28] LABS: ERYTHROCYTE SEDIMENTATION RATE 54 MM/HR (0-15)
[2021-07-17 11:26] LABS: C-REACTIVE PROTEIN QUANT 6.6 mg/dL (0-0.5)
[2021-07-17] MEDS: cefTRIAXone 1 GM IVPB PREMIX 50 ML IV SCH (22:09)
[2021-07-17] MEDS: ATORVASTATIN 10 MG TABLET PO SCH (22:09)
[2021-07-18 00:13] VITALS: BP_SYST 140
[2021-07-18] MEDS: IPRATROPIUM BROM 0.5 MG/2.5 ML VIAL.NEB (ATROVENT) INH SCH ×4 (03:08→15:00)
[2021-07-18] MEDS: ALBUTEROL SULFATE 0.083% 2.5 MG/3 ML VIAL.NEB INH SCH ×4 (03:08→15:00)
[2021-07-18] MEDS: metroNIDAZOLE 500 mg/NS 100 ML IV SCH ×2 (05:25→17:13)
[2021-07-18] MEDS: NORMAL SALINE 5 ML DISP.SYRIN IVF SCH ×2 (05:25→17:14)
[2021-07-18 07:19] LABS: BASOPHILS # (AUTO) 0.1 K/uL (0.0-0.2); BASOPHILS % (AUTO) 0.7 % (0.0-2.0); EOSINOPHILS # (AUTO) 0.4 K/uL (0.0-0.4); EOSINOPHILS % (AUTO) 3.5 % (0.0-4.0); HEMATOCRIT 34.4 % (36-54); HEMOGLOBIN 11.1 g/dL (14.0-18.0); LYMPHOCYTES # (AUTO) 2.4 K/uL (1.0-5.5); LYMPHOCYTES % (AUTO) 19.7 % (20.5-51.5); MEAN CORPUSCULAR HEMOGLOBIN 29 pg (27-31); MEAN CORPUSCULAR HGB CONC 32 % (32-36); MEAN CORPUSCULAR VOLUME 91 fL (79.0-98.0); MONOCYTES # (AUTO) 0.9 K/uL (0.0-1.0); MONOCYTES % (AUTO) 7.6 % (1.7-9.3); NEUTROPHILS # (AUTO) 8.2 K/uL (1.8-7.7); NEUTROPHILS % (AUTO) 68.5 % (40.0-70.0); PLATELET COUNT (AUTO) 295 K/uL (130-430); RED BLOOD CELL COUNT(AUTO) 3.77 MIL/uL (4.2-6.2); RED CELL DISTRIBUTION WIDTH 18.3 % (9.0-15.0)
[2021-07-18 07:38] LABS: ALANINE AMINOTRANSFERASE 10 U/L (12-78); ALBUMIN 3.5 g/dL (3.4-4.8); ANION GAP 6 (5-15); ASPARTATE AMINOTRANSFERASE 16 U/L (10-37); CALCIUM 9.2 mg/dL (8.4-11.0); CHLORIDE 101 mmol/L (98-107); CREATININE 2.11 mg/dL (0.55-1.30); GLUCOSE 148 mg/dL (70-99); PHOSPHORUS 4.4 mg/dL (2.7-4.5); POTASSIUM 3.7 mmol/L (3.5-5.1); SODIUM SERUM 132 mmol/L (136-145); TOTAL BILIRUBIN 0.3 mg/dL (0.0-1.0); UREA NITROGEN, BLOOD 52 mg/dL (8-21)
[2021-07-18 08:00] VITALS: BP_SYST 124
[2021-07-18] MEDS: BALSAM PERU/CASTOR OIL 60 GM OINT...G. TP SCH (09:00)
[2021-07-18] MEDS: EMOLLIENT COMBINATION NO.73 78 GM CREAM..G. TP SCH (09:00)
[2021-07-18] MEDS: CARBIDOPA/LEVODOPA 25/100 MG TABLET PO SCH (09:20)
[2021-07-18] MEDS: MIDODRINE HCL 5 MG TABLET (PROAMATINE) PO SCH ×2 (09:20→17:13)
[2021-07-18] MEDS: NEPHROVITE, (FOLIC ACID/VITAMIN B COMP W-C 1 TAB) PO SCH (09:20)
[2021-07-18] MEDS: ASCORBIC ACID 500 MG TABLET PO SCH (09:20)
[2021-07-18] MEDS: CARBIDOPA/LEVODOPA 25/250 MG TABLET PO SCH ×3 (09:20→17:14)
[2021-07-18] MEDS: FERROUS GLUCONATE 324 MG TABLET PO SCH (09:20)
[2021-07-18 10:28] LABS: C-REACTIVE PROTEIN QUANT 4.6 mg/dL (0-0.5)
[2021-07-18 11:25] LABS: ERYTHROCYTE SEDIMENTATION RATE 39 MM/HR (0-15)
[2021-07-18 12:00] VITALS: BP_SYST 131
[2021-07-18 16:09] VITALS: BP_SYST 127
[2021-07-18 17:37] VITALS: BP_SYST 126
== END 2021-07-18 18:56 | DRG 853 ==
LOC: SED 20:22 → STU 07-11 00:34 → SMU 07-13 10:38
PROVIDERS: ADMIT Internal Medicine Hospice and Palliative Medicine; ATTEND Internal Medicine Hospice and Palliative Medicine
PROC: 0WQ0XZZ Repair Head, External Approach (ICD-10-PCS; 2021-07-11)
PROC: 5A1D80Z Performance of Urinary Filtration, Prolonged Intermittent, 6-18 hours Per Day (ICD-10-PCS; 2021-07-11)
PROC: 5A1D70Z Performance of Urinary Filtration, Intermittent, Less than 6 Hours Per Day (ICD-10-PCS; 2021-07-12)
PROC: 0HBGXZZ Excision of Left Hand Skin, External Approach (ICD-10-PCS; principal; 2021-07-13 17:09)
PROC: 5A1D70Z Performance of Urinary Filtration, Intermittent, Less than 6 Hours Per Day (ICD-10-PCS; 2021-07-14)
PROC: 5A1D80Z Performance of Urinary Filtration, Prolonged Intermittent, 6-18 hours Per Day (ICD-10-PCS; 2021-07-16)
PROC: 5A1D70Z Performance of Urinary Filtration, Intermittent, Less than 6 Hours Per Day (ICD-10-PCS; 2021-07-17)
DX: A41.9 Sepsis, unspecified organism (principal); J96.21 Acute and chronic respiratory failure with hypoxia; J69.0 Pneumonitis due to inhalation of food and vomit; I50.33 Acute on chronic diastolic (congestive) heart failure; N18.6 End stage renal disease; N17.9 Acute kidney failure, unspecified; I13.2 Hypertensive heart and chronic kidney disease with heart failure and with stage 5 chronic kidney disease, or end stage renal disease; E66.9 Obesity, unspecified; G20 Parkinson's disease; S01.01XA Laceration without foreign body of scalp, initial encounter; W18.39XA Other fall on same level, initial encounter; E11.65 Type 2 diabetes mellitus with hyperglycemia; E11.22 Type 2 diabetes mellitus with diabetic chronic kidney disease; E78.00 Pure hypercholesterolemia, unspecified; D64.9 Anemia, unspecified; R53.81 Other malaise; Z20.822 Contact with and (suspected) exposure to COVID-19; C76.42 Malignant neoplasm of left upper limb; Z88.5 Allergy status to narcotic agent; Z91.041 Radiographic dye allergy status; Z86.73 Personal history of transient ischemic attack (TIA), and cerebral infarction without residual deficits; Z86.16 Personal history of COVID-19; Z87.01 Personal history of pneumonia (recurrent); Z85.038 Personal history of other malignant neoplasm of large intestine; Z93.3 Colostomy status; Z99.2 Dependence on renal dialysis; Z68.31 Body mass index [BMI] 31.0-31.9, adult; Y93.89 Activity, other specified; Y92.89 Other specified places as the place of occurrence of the external cause; Y99.8 Other external cause status
CPT/HCPCS: 36415; 36600; 70450-TC; 71045; 71250-TC; 72125-TC; 73560-TC; 76376; 80048; 80053; 82803-TC; 83051; 83735; 83880; 84100; 84443; 84484; 85014; 85025; 85048; 85049-TC; 85610-TC; 85651-TC; 85730-TC; 86140; 87040-TC; 87081; 88305; 88307; 90715; 90935; 90937; 93005; 93880; 94640; 94760; 96365; 96368; 97110-GO; 97110-GP; 97116-GP; 97163-GP; 97530-GO; 97530-GP; 97535-GO; 99285; G0378; J0330; J0456; J0694; J0696; J1100; J1170; J2250; J2370; J2405; J2704; J2765; J3010; J3480; J3490; J7030; J7050; J7060; J7120; J7613

== ENCOUNTER 2021-08-11 17:41 | Inpatient (IN) | payer OTHER, SELFPAY ==
[~2021-08-11] VITALS: Ht 175.3 cm; Wt 93.0 kg
[~2021-08-11 17:41] MED LIST changes: +ASCO500T20 PO; +FOLI0.8T42 PO; -MIDO10TA PO; +MIDO5TAB4 PO
[2021-08-11 17:53] VITALS: BP_SYST 148
--- NOTE | 2021-08-11 18:00 | NUR ---
Placed in room 7 . Placed on teletypesetter monitor, blood pressure machine and pulse oximeter. To gown for exam. Side rails up.
--- NOTE | 2021-08-11 18:00 | NUR ---
Pt biba ACLS with c/o "not wanting to walk" per . Pt has been refusing to walk and failure to thrive at home x1 week. Pt opens eyes but closes them when staff walks in. He does not follow commands. Colostomy present to left abd, dialysis fistula to right arm + for bruit and thrill. All vital signs present, no distress noted.
--- NOTE | 2021-08-11 18:14 | NUR ---
ER at bedside examining patient.
--- NOTE | 2021-08-11 18:30 | NUR ---
Pt taken to ct in stable condition.
--- NOTE | 2021-08-11 18:34 | NUR ---
# 18 gauge angiocath placed to LFA. Use of asceptic technique. Opsite placed over site. Blood return noted. Blood for lab drawn from site. Flushed with 10 cc of normal saline. No evidence of infiltration noted. Patient tolerated well.
[2021-08-11 18:43] LABS: BASOPHILS # (AUTO) 0.5 K/uL (0.0-0.2); BASOPHILS % (AUTO) 4.1 % (0.0-2.0); EOSINOPHILS # (AUTO) 0.7 K/uL (0.0-0.4); EOSINOPHILS % (AUTO) 5.9 % (0.0-4.0); HEMATOCRIT 33.6 % (36-54); HEMOGLOBIN 11.1 g/dL (14.0-18.0); LYMPHOCYTES # (AUTO) 3.1 K/uL (1.0-5.5); LYMPHOCYTES % (AUTO) 28.1 % (20.5-51.5); MEAN CORPUSCULAR HEMOGLOBIN 29 pg (27-31); MEAN CORPUSCULAR HGB CONC 33 % (32-36); MEAN CORPUSCULAR VOLUME 88 fL (79.0-98.0); MONOCYTES % (AUTO) 8.6 % (1.7-9.3); NEUTROPHILS % (AUTO) 53.3 % (40.0-70.0); PLATELET COUNT (AUTO) 261 K/uL (130-430); RED BLOOD CELL COUNT(AUTO) 3.81 MIL/uL (4.2-6.2); RED CELL DISTRIBUTION WIDTH 17.4 % (9.0-15.0); WHITE BLOOD COUNT (AUTO) 11.2 K/uL (4.8-10.8)
--- NOTE | 2021-08-11 18:49 | NUR ---
pt back from ct in stable condition.
--- NOTE | 2021-08-11 19:30 | NUR ---
Pt A/A/O x 1, however, at time non-verbal, VSS no s/s of acute distress Resting on gurney rails up
[2021-08-11 19:35] LABS: ANION GAP 9 (5-15); CALCIUM 7.9 mg/dL (8.4-11.0); CHLORIDE 101 mmol/L (98-107); CREATININE 2.27 mg/dL (0.55-1.30); GLUCOSE 154 mg/dL (70-99); POTASSIUM 3.1 mmol/L (3.5-5.1); SODIUM SERUM 138 mmol/L (136-145); UREA NITROGEN, BLOOD 31 mg/dL (8-21)
[2021-08-11 19:40] LABS: ALANINE AMINOTRANSFERASE 11 U/L (12-78); ALBUMIN 2.9 g/dL (3.4-4.8); ASPARTATE AMINOTRANSFERASE 19 U/L (10-37); TOTAL BILIRUBIN 0.3 mg/dL (0.0-1.0)
--- NOTE | 2021-08-11 20:59 | NUR ---
Requested Tele Bed Assignment, awaiting call back from floor
--- NOTE | 2021-08-11 22:29 | NUR ---
Awaiting room 122A bed to be cleaned, floor will call ER
[2021-08-11 22:56] LABS: BILIRUBIN,URINE NEGATIVE (NEGATIVE); COLOR,URINE YELLOW (YELLOW); GLUCOSE,URINE NEGATIVE (NEGATIVE); KETONES,URINE NEGATIVE (NEGATIVE); LEUKOCYTE ESTERASE ,URINE 2+ (NEGATIVE); NITRITE, URINE NEGATIVE (NEGATIVE); PROTEIN URINE TRACE (NEGATIVE); UROBILINOGEN,URINE 0.2 (0.2-1.0)
--- NOTE | 2021-08-11 23:08 | NUR ---
Bed is ready, transfer pt to bed 122A
[2021-08-11 23:10] LABS: BLOOD, URINE TRACE (NEGATIVE); CLARITY/URINE HAZY (CLEAR)
--- NOTE | 2021-08-11 23:15 | NUR ---
Patient will be admitted to care of Dr. Torres. Admitted to Tele unit. Will go to room 122A. Belongings list completed. Complete and up to date summary report printed. SBAR report to be given at bedside with opportunity for questions.
--- NOTE | 2021-08-11 23:15 | NUR ---
Transfer to Tele via ACLS protocol. Licensed nurse present. IV present no signs or symptoms of infiltration.
--- NOTE | 2021-08-11 23:30 | NUR ---
PT ADMITTED TO [facility]. PT AOX1. PT ABLE TO SPEAK A FEW WORDS. RR EVEN AND UNLABORED ON 2L NC. PT HAS IV IN LFA 22G. COLOSTOMY BAG INTACT WITH NO REDNESS OR SWELLING. PT HAS AV SHUNT ON BRIE. PT EDUCATED TO USE CALL LIGHT IN HE NEEDS HELP. BED RAILS UPX2. BED ALARM ON. WILL CONTINUE TO MONITOR.
[2021-08-11 23:39] LABS: BACTERIA,URINE FEW /HPF (None Seen); RBC,URINE 0-3 /HPF (0-3); WBC,URINE 20-50 /HPF (0-3)
[2021-08-11 23:40] LABS: MUCUS,URINE None Seen /LPF (None Seen)
[2021-08-12] VITALS (8 sets, daily range): BP systolic 93–156
[2021-08-12] MEDS ORDERED: ACETAMINOPHEN 325 MG TABLET PO PRN (00:45)
[2021-08-12] MEDS ORDERED: ALBUTEROL SULFATE 0.083% 2.5 MG/3 ML VIAL.NEB INH PRN (00:45)
[2021-08-12] MEDS ORDERED: MIDODRINE HCL 5 MG TABLET (PROAMATINE) PO PRN (01:00)
[2021-08-12] MEDS ORDERED: PIPERACILLIN/TAZOBACTAM 3.375 GM/VIAL (ZOSYN) IV ONE (01:39)
[2021-08-12] MEDS: PIPERACILLIN/TAZO 3.375/DEX-IS 50 ML IV SCH ×5 (01:41→23:11)
[2021-08-12] MEDS: NORMAL SALINE 5 ML DISP.SYRIN IVF SCH ×3 (05:27→22:08)
--- NOTE | 2021-08-12 06:00 | NUR ---
UPDATED FAMILY ON PT CONDITION AND PLAN OF CARE.
--- NOTE | 2021-08-12 06:59 | NUR ---
PT SLEPT THROUGH THE NIGHT. PT CO PAIN. IV PATENT ABLE TO FLUSH. WILL ENDORSE CARE TO DAY RN.
[2021-08-12 07:59] LABS: BASOPHILS # (AUTO) 0.1 K/uL (0.0-0.2); BASOPHILS % (AUTO) 0.8 % (0.0-2.0); EOSINOPHILS # (AUTO) 0.3 K/uL (0.0-0.4); EOSINOPHILS % (AUTO) 2.7 % (0.0-4.0); HEMOGLOBIN 11.2 g/dL (14.0-18.0); LYMPHOCYTES # (AUTO) 1.8 K/uL (1.0-5.5); LYMPHOCYTES % (AUTO) 19.2 % (20.5-51.5); MEAN CORPUSCULAR HEMOGLOBIN 29 pg (27-31); MEAN CORPUSCULAR HGB CONC 32 % (32-36); MEAN CORPUSCULAR VOLUME 89 fL (79.0-98.0); MONOCYTES # (AUTO) 0.7 K/uL (0.0-1.0); MONOCYTES % (AUTO) 7.2 % (1.7-9.3); NEUTROPHILS # (AUTO) 6.6 K/uL (1.8-7.7); NEUTROPHILS % (AUTO) 70.1 % (40.0-70.0); PLATELET COUNT (AUTO) 254 K/uL (130-430); RED BLOOD CELL COUNT(AUTO) 3.94 MIL/uL (4.2-6.2); RED CELL DISTRIBUTION WIDTH 17.3 % (9.0-15.0); WHITE BLOOD COUNT (AUTO) 9.4 K/uL (4.8-10.8)
[2021-08-12 08:25] LABS: ALANINE AMINOTRANSFERASE 13 U/L (12-78); ALBUMIN 3.2 g/dL (3.4-4.8); ANION GAP 11 (5-15); ASPARTATE AMINOTRANSFERASE 12 U/L (10-37); CALCIUM 8.7 mg/dL (8.4-11.0); CHLORIDE 99 mmol/L (98-107); GLUCOSE 122 mg/dL (70-99); SODIUM SERUM 140 mmol/L (136-145); TOTAL BILIRUBIN 0.4 mg/dL (0.0-1.0); UREA NITROGEN, BLOOD 30 mg/dL (8-21)
[2021-08-12] MEDS: CARBIDOPA/LEVODOPA 25/100 MG TABLET PO SCH ×4 (09:00→20:44)
[2021-08-12] MEDS: FUROSEMIDE 40 MG TABLET PO SCH ×2 (10:01→20:44)
[2021-08-12] MEDS: ATORVASTATIN 10 MG TABLET PO SCH (10:01)
[2021-08-12] MEDS: NEPHROVITE, (FOLIC ACID/VITAMIN B COMP W-C 1 TAB) PO SCH (10:01)
--- NOTE | 2021-08-12 10:18 | NUR ---
Nutrition Update Alex Scale 14 noted. Pt admitted for aspiration pneumonia. Diet: 2 gm Na BMI: 30.3 kg/m2 RD to follow per nutrition care standards.
--- NOTE | 2021-08-12 11:20 | NUR ---
CONSULTATION PAGED/CALLED Reason for Consultation: [] SYNCOPE Person Who was Notified: [] JASBIR Consulting Physician: [] DR DUMONT Gis Instructor Specialty: [] CARDIO Ordering Physician: [] DR PERRY
--- NOTE | 2021-08-12 11:21 | NUR ---
CONSULTATION PAGED/CALLED Reason for Consultation: [] CONFUSION/SYNCOPE Person Who was Notified: [] DR FOSS ON HIS CELL Consulting Physician: [] DR Darrell FOSS Pattern Vault Clerk Specialty: [] NEURO Ordering Physician: [] DR PERRY
--- NOTE | 2021-08-12 12:13 | NUR ---
SPOKE WITH DR PERRY REGARDING PATIENTS NEED FOR NEPHRO CONSULT, PER DR PERRY CONSULT HALLE
--- NOTE | 2021-08-12 15:35 | NUR ---
CONSULTATION PAGED/CALLED Reason for Consultation: [] ESRD Person Who was Notified: [] DR NERI Consulting Physician: [] DR NERI Pharmacy Aide Specialty: [] PRODUCTION CHECKER Ordering Physician: [] DR PERRY
--- NOTE | 2021-08-12 19:50 | NUR ---
Hemodialysis started monitored by HD nurse Addendum: 08/12/21 at 2259 by Lian Kate RN Hemodialysis completed vitals sign stable
[2021-08-12] MEDS ORDERED: ALBUMIN HUMAN 25% 100 ML IV ONE (20:30)
[2021-08-13 00:40] VITALS: BP_SYST 103
--- NOTE | 2021-08-13 03:20 | NUR ---
Swallow Eval Called Left a message for Amna regarding swallow eval, ordered by Dr. Murrieta.
--- NOTE | 2021-08-13 04:10 | NUR ---
Skin care/comfort Perineal care given skin cream barrier applied to sacral/perineal area, repositioned , bilateral heel keep floating supported by pillow
[2021-08-13] MEDS: NORMAL SALINE 5 ML DISP.SYRIN IVF SCH ×3 (05:29→23:15)
[2021-08-13] MEDS: PIPERACILLIN/TAZO 3.375/DEX-IS 50 ML IV SCH ×4 (05:29→23:15)
--- NOTE | 2021-08-13 07:30 | NUR ---
OPENING NOTES: RECEIVED PATIENT FROM COMMUNITY RELATIONS MANAGER NURSE. PATIENT IS AWAKE, LAYING DOWN IN BED. TOLERATED OXYGEN ON ROOM AIR WITH NO DISTRESS OR SHORTNESS OF BREATH. IV LINE PATENT AND INTACT WITH NO INFILTRATION NOTED. PATIENT STABLE AT THIS TIME. SAFETY, FALL, AND ASPIRATION PRECAUTIONS ARE IN PLACE. BED LOCKED IN LOWEST POSITION AND CALL LIGHT IN REACH. WILL CONTINUE TO MONITOR PATIENT FOR ANY CHANGES.
[2021-08-13] MEDS: CARBIDOPA/LEVODOPA 25/100 MG TABLET PO SCH ×4 (08:39→20:30)
[2021-08-13] MEDS: NEPHROVITE, (FOLIC ACID/VITAMIN B COMP W-C 1 TAB) PO SCH (08:40)
[2021-08-13] MEDS: ATORVASTATIN 10 MG TABLET PO SCH (08:40)
[2021-08-13] MEDS: FUROSEMIDE 40 MG TABLET PO SCH ×2 (08:42→20:30)
[2021-08-13 13:04] VITALS: BP_SYST 100
--- NOTE | 2021-08-13 16:04 | NUR ---
Dietitian Recommendations * Recommend CCHO, renal diet w/ Nepro BID (ONS provides 840 kcal/day, 38 gm protein/day) SANDHYA YU Please refer to Nutrition Assessment for details. Addendum: 08/13/21 at [address] Amended: Links added.
--- NOTE | 2021-08-13 16:05 | NUR ---
CM : s/w EFFIE Garcia/Carlos mg# [phone] stated received faxed the order to home with home health. She spoke with pt with snf transfer agreeable. She will call nursing unit if able to find an accepting snf and bed. DC package placed in MST unit. Please get ask Carlos CHOU to arrange the transportation. -- VICKIE Harper aware. Addendum: 08/13/21 at 1634 by Andre Stout RN Correction:pt is to dc home with home health. Per Radha : home health is arranged with [facility] # [phone]. CHRISTINE Kaur aware. Addendum: 08/13/21 at 1637 by Andre Stout RN disposition 06
[2021-08-13 18:11] VITALS: BP_SYST 113
--- NOTE | 2021-08-13 18:30 | NUR ---
CLOSING NOTES: PATIENT IS AWAKE, LAYING DOWN IN BED. TOLERATED OXYGEN ON ROOM AIR WITH NO DISTRESS OR SHORTNESS OF BREATH. IV LINE PATENT AND INTACT WITH NO INFILTRATION NOTED. PATIENT STABLE AT THIS TIME. SAFETY, FALL, AND ASPIRATION PRECAUTIONS REMAINED IN PLACE. BED LOCKED IN LOWEST POSITION AND CALL LIGHT IN REACH. WILL ENDORSE PATIENT CARE TO AWNING CRAFTSMAN NURSE.
[2021-08-13 19:58] VITALS: BP_SYST 101
[2021-08-13 22:43] VITALS: BP_SYST 115
--- NOTE | 2021-08-13 22:45 | NUR ---
Patient woke up seems confused , vitals sign wnl , blood sugar 164 mg/dl , reoriented patient , safety/fall precaution initiated repositioned, will monitor.
--- NOTE | 2021-08-14 00:33 | NUR ---
Patient sleeping no sign of acute discomfort telemetry NSR @80/MIN
[2021-08-14 01:20] VITALS: BP_SYST 125
--- NOTE | 2021-08-14 03:31 | NUR ---
PATIENT RESTING: Patient resting quietly. No acute distress noted. repositioned.
[2021-08-14] MEDS: PIPERACILLIN/TAZO 3.375/DEX-IS 50 ML IV SCH ×4 (05:26→23:21)
[2021-08-14] MEDS: NORMAL SALINE 5 ML DISP.SYRIN IVF SCH ×3 (05:26→23:20)
--- NOTE | 2021-08-14 05:29 | NUR ---
Colostomy care Stoma is red no bleeding periwound intact cleanse with water pat/dry , new colostomy bag attached, repositioned after perineal care , skin cream barrier applied .
--- NOTE | 2021-08-14 07:25 | NUR ---
OPENING NOTES: RECEIVED PATIENT FROM HUMAN RESOURCES PROFESSIONAL NURSE. PATIENT IS AWAKE, LAYING DOWN IN BED. TOLERATED OXYGEN ON ROOM AIR WITH NO DISTRESS OR SHORTNESS OF BREATH. IV LINE PATENT AND INTACT WITH NO INFILTRATION NOTED. PATIENT STABLE AT THIS TIME. SAFETY, FALL, AND ASPIRATION PRECAUTIONS ARE IN PLACE. BED LOCKED IN LOWEST POSITION AND CALL LIGHT IN REACH. WILL CONTINUE TO MONITOR PATIENT FOR ANY CHANGES.
[2021-08-14 08:00] VITALS: BP_SYST 132
[2021-08-14 08:16] LABS: BASOPHILS % (AUTO) 0.3 % (0.0-2.0); EOSINOPHILS # (AUTO) 1.4 K/uL (0.0-0.4); EOSINOPHILS % (AUTO) 13.1 % (0.0-4.0); HEMATOCRIT 34.7 % (36-54); HEMOGLOBIN 11.2 g/dL (14.0-18.0); LYMPHOCYTES # (AUTO) 1.4 K/uL (1.0-5.5); MEAN CORPUSCULAR HEMOGLOBIN 29 pg (27-31); MEAN CORPUSCULAR HGB CONC 32 % (32-36); MEAN CORPUSCULAR VOLUME 89 fL (79.0-98.0); MONOCYTES # (AUTO) 0.8 K/uL (0.0-1.0); MONOCYTES % (AUTO) 7.6 % (1.7-9.3); PLATELET COUNT (AUTO) 231 K/uL (130-430); RED BLOOD CELL COUNT(AUTO) 3.89 MIL/uL (4.2-6.2); WHITE BLOOD COUNT (AUTO) 10.6 K/uL (4.8-10.8)
[2021-08-14] MEDS: CARBIDOPA/LEVODOPA 25/100 MG TABLET PO SCH (08:17)
[2021-08-14] MEDS: ATORVASTATIN 10 MG TABLET PO SCH (08:18)
[2021-08-14] MEDS: NEPHROVITE, (FOLIC ACID/VITAMIN B COMP W-C 1 TAB) PO SCH (08:18)
[2021-08-14] MEDS: FUROSEMIDE 40 MG TABLET PO SCH ×2 (08:18→20:42)
[2021-08-14 09:27] LABS: ANION GAP 12 (5-15); CHLORIDE 97 mmol/L (98-107); CREATININE 2.58 mg/dL (0.55-1.30); GLUCOSE 139 mg/dL (70-99); PHOSPHORUS 3.9 mg/dL (2.7-4.5); POTASSIUM 3.3 mmol/L (3.5-5.1); SODIUM SERUM 139 mmol/L (136-145); UREA NITROGEN, BLOOD 32 mg/dL (8-21)
--- NOTE | 2021-08-14 10:00 | NUR ---
PATIENT POTASSIUM IS 3.[address]RAFF FOR DR. PERRY IS AWARE.
[2021-08-14] MEDS ORDERED: POTASSIUM CHLORIDE 20 MEQ TAB.PRT.SR PO ONE (11:30)
--- NOTE | 2021-08-14 11:51 | NUR ---
CONSULTATION PAGED REASON FOR CONSULTATION:ALOC WAS CONSULT CALLED?Y PERSON WHO WAS NOTIFIED:TEXT MESSAGED SANDRA LOPEZ CONSULTING PHYSICIAN:SANDRA LOPEZ TECHNOLOGY AND ENGINEERING TEACHER SPECIALTY:NEURO TECHNOLOGY AND ENGINEERING TEACHER PHONE NUMBER:[phone] REQUESTING PHYSICIAN:JACOB ARTIS
[2021-08-14 12:00] VITALS: BP_SYST 90
[2021-08-14 12:30] LABS: C-REACTIVE PROTEIN QUANT 2.3 mg/dL (0-0.5)
[2021-08-14] MEDS ORDERED: CARBIDOPA/LEVODOPA 25/250 MG TABLET PO ONE (13:00)
--- NOTE | 2021-08-14 14:00 | NUR ---
CM: Informed Radha pt has neuro consult pending. will arrange caregiver for tomorrow, no caregiver today . Per dr. Kerr the pt may discharge after HD tomorrow. -- Vicenta aware.
[2021-08-14 15:19] LABS: ERYTHROCYTE SEDIMENTATION RATE 23 MM/HR (0-15)
--- NOTE | 2021-08-14 18:35 | NUR ---
CLOSING NOTES: PATIENT IS AWAKE, LAYING DOWN IN BED. TOLERATED OXYGEN ON ROOM AIR WITH NO DISTRESS OR SHORTNESS OF BREATH. IV LINE PATENT AND INTACT WITH NO INFILTRATION NOTED. PATIENT STABLE AT THIS TIME. SAFETY, FALL, AND ASPIRATION PRECAUTIONS REMAINED IN PLACE. BED LOCKED IN LOWEST POSITION AND CALL LIGHT IN REACH. WILL ENDORSE PATIENT CARE TO JUNIOR ARCHITECT NURSE.
[2021-08-14 20:40] VITALS: BP_SYST 104
[2021-08-14] MEDS: CARBIDOPA/LEVODOPA 25/250 MG TABLET PO SCH (20:42)
--- NOTE | 2021-08-14 21:00 | NUR ---
Patient took his med with out aspiration, repositioned supported by pillow
[2021-08-15 00:29] VITALS: BP_SYST 108
--- NOTE | 2021-08-15 01:00 | NUR ---
Patient repositioned by staff every 2 hours with pillow support.
--- NOTE | 2021-08-15 04:30 | NUR ---
Patient sleepy but arousable answers question able to turn to side with help TSB done sacral area with dry skin , rinse with soap/water pat/dry skin cream barrier applied , repositioned.
[2021-08-15] MEDS: NORMAL SALINE 5 ML DISP.SYRIN IVF SCH ×3 (05:14→23:42)
[2021-08-15] MEDS: PIPERACILLIN/TAZO 3.375/DEX-IS 50 ML IV SCH ×3 (05:14→17:28)
[2021-08-15 07:44] LABS: BASOPHILS # (AUTO) 0.1 K/uL (0.0-0.2); BASOPHILS % (AUTO) 0.5 % (0.0-2.0); EOSINOPHILS # (AUTO) 1.4 K/uL (0.0-0.4); HEMATOCRIT 34.1 % (36-54); HEMOGLOBIN 10.8 g/dL (14.0-18.0); LYMPHOCYTES # (AUTO) 1.9 K/uL (1.0-5.5); LYMPHOCYTES % (AUTO) 16.1 % (20.5-51.5); MEAN CORPUSCULAR HEMOGLOBIN 28 pg (27-31); MEAN CORPUSCULAR HGB CONC 32 % (32-36); MEAN CORPUSCULAR VOLUME 90 fL (79.0-98.0); MONOCYTES # (AUTO) 0.8 K/uL (0.0-1.0); MONOCYTES % (AUTO) 6.5 % (1.7-9.3); NEUTROPHILS # (AUTO) 7.7 K/uL (1.8-7.7); NEUTROPHILS % (AUTO) 64.9 % (40.0-70.0); PLATELET COUNT (AUTO) 236 K/uL (130-430); RED BLOOD CELL COUNT(AUTO) 3.81 MIL/uL (4.2-6.2); RED CELL DISTRIBUTION WIDTH 17.4 % (9.0-15.0); WHITE BLOOD COUNT (AUTO) 11.8 K/uL (4.8-10.8)
--- NOTE | 2021-08-15 08:00 | NUR ---
OPENING NOTES: PATIENT EATING BREAKFAST WITH ASSIST. HOB ELEVATED. BREATHING EVEN AND NON LABORED TO RA. IV INFUSING WELL. COLOSTOMY IN PLACED. BED LOCKED, ALARM ON AND IN LOWEST POSITION. FALL, SAFETY AND ASPIRATION PRECAUTION REINFORCED. CALL LIGHT WITHIN REACH.
--- NOTE | 2021-08-15 08:30 | NUR ---
COLOSTOMY CARE: COLOSTOMY BAG CHANGED. STOMA IS RED WITH GOOD CIRCULATION. PERIWOUND INTACT.
[2021-08-15] MEDS: CARBIDOPA/LEVODOPA 25/250 MG TABLET PO SCH ×4 (08:36→20:56)
[2021-08-15] MEDS: NEPHROVITE, (FOLIC ACID/VITAMIN B COMP W-C 1 TAB) PO SCH (08:36)
[2021-08-15] MEDS: ATORVASTATIN 10 MG TABLET PO SCH (08:36)
[2021-08-15 08:37] VITALS: BP_SYST 149
[2021-08-15] MEDS: FUROSEMIDE 40 MG TABLET PO SCH ×2 (08:37→20:56)
[2021-08-15 09:53] VITALS: BP_SYST 149
--- NOTE | 2021-08-15 10:57 | NUR ---
RN NOTES: INCONTINENT CARE DONE. NO S/S OF ACUTE DISTRESS NOTED. BED LOCKED, ALARM ON AND IN LOWEST POSITION. REPOSITIONED. CALL LIGHT WITH REACH.
--- NOTE | 2021-08-15 10:58 | NUR ---
RN NOTES: INCONTINENT CARE DONE. ILEOSTOMY BAG EMPTIED. NO S/S OF ACUTE DISTRESS NOTED. BE LOCKED, ALARM ON AND IN LOWEST POSITION. WILL CONTINUE MONITOR PATIENT.
[2021-08-15 11:29] LABS: ALANINE AMINOTRANSFERASE 13 U/L (12-78); ALBUMIN 3.1 g/dL (3.4-4.8); ANION GAP 10 (5-15); ASPARTATE AMINOTRANSFERASE 23 U/L (10-37); CALCIUM 8.6 mg/dL (8.4-11.0); CHLORIDE 100 mmol/L (98-107); CREATININE 2.74 mg/dL (0.55-1.30); GLUCOSE 119 mg/dL (70-99); PHOSPHORUS 4.5 mg/dL (2.7-4.5); POTASSIUM 3.9 mmol/L (3.5-5.1); SODIUM SERUM 139 mmol/L (136-145); TOTAL BILIRUBIN 0.3 mg/dL (0.0-1.0); UREA NITROGEN, BLOOD 43 mg/dL (8-21)
[2021-08-15 12:01] LABS: ERYTHROCYTE SEDIMENTATION RATE 30 MM/HR (0-15)
[2021-08-15 12:27] VITALS: BP_SYST 109
[2021-08-15 12:31] LABS: C-REACTIVE PROTEIN QUANT 1.4 mg/dL (0-0.5)
--- NOTE | 2021-08-15 14:10 | NUR ---
HEMODIALYSIS AT BEDSIDE DONE: HD AT BEDSIDE DONE. HD OUT 3 LITERS. NO S/S OF ACUTE DISTRESS NOTED. BP 111/60. BED LOCKED, ALARM ON AND IN LOWEST POSITION. CALL LIGHT WITHIN REACH. Addendum: 08/15/21 at 1902 by Mandy Carroll RN CORRECTION: HD OUT= 2 LITERS.
[2021-08-15 16:56] VITALS: BP_SYST 114
--- NOTE | 2021-08-15 18:59 | NUR ---
CLOSING NOTES: PATIENT RESTING IN BED. HOB ELEVATED. NO S/S OF ACUTE DISTRESS NOTED. IV INFUSING WELL. COLOSTOMY IN PLACED. BED LOCKED, ALARM ON AND IN LOWEST POSITION. FALL, SAFETY AND ASPIRATION PRECAUTION REINFORCED. CALL LIGHT WITHIN REACH.
[2021-08-15 19:45] VITALS: BP_SYST 113
[2021-08-16] MEDS: PIPERACILLIN/TAZO 3.375/DEX-IS 50 ML IV SCH ×2 (00:34→05:31)
[2021-08-16 01:59] VITALS: BP_SYST 101
[2021-08-16] MEDS: NORMAL SALINE 5 ML DISP.SYRIN IVF SCH ×2 (05:31→15:31)
--- NOTE | 2021-08-16 07:18 | NUR ---
HANDOFF WITH VICKIE OVERTON. CLOTILDE CALDERÓN RN
--- NOTE | 2021-08-16 07:58 | NUR ---
OPENING NOTES: PATIENT EATING BREAKFAST WITH ASSIST. REPOSITIONED PATIENT. HOB ELEVATED. BREATHING EVEN AND NON LABORED TO RA. IV INFUSING WELL. COLOSTOMY IN PLACED. BED LOCKED, ALARM ON AND IN LOWEST POSITION. FALL, SAFETY AND ASPIRATION PRECAUTION REINFORCED. CALL LIGHT WITHIN REACH.
[2021-08-16 08:17] VITALS: BP_SYST 125
[2021-08-16] MEDS: ATORVASTATIN 10 MG TABLET PO SCH (08:32)
[2021-08-16] MEDS: NEPHROVITE, (FOLIC ACID/VITAMIN B COMP W-C 1 TAB) PO SCH (08:32)
[2021-08-16] MEDS: CARBIDOPA/LEVODOPA 25/250 MG TABLET PO SCH ×3 (08:32→16:10)
[2021-08-16] MEDS: FUROSEMIDE 40 MG TABLET PO SCH (08:32)
--- NOTE | 2021-08-16 11:16 | NUR ---
RN NOTES; INCONTINENT CARE DONE. EMPTIED COLOSTOMY BAG. NO S/S OF ACUTE DISTRESS NOTED. BED LOCKED, ALARM ON AND IN LOWEST POSITION.
--- NOTE | 2021-08-16 12:40 | NUR ---
Discharge Planning: DCP faxed [facility] pt referral for Rx to be administered at time of dialyzing, pending RX order. DCP to follow up. Addendum: 08/16/21 at 1556 by Laina BRISENO DCP followed up with [facility] (F [phone] P [phone]) referral was received, a doctors order with the duration of the IV medication is needed and faxed CM made aware. DCP arranged transport with [facility] [phone] 7:30pm P/U per request. Patient packet taken to nurse station
[2021-08-16 12:47] VITALS: BP_SYST 121
[2021-08-16] MEDS ORDERED: VANCOMYCIN HCL 1,500 MG in NS 250 ML IV ONE (16:00)
[2021-08-16 16:24] VITALS: BP_SYST 122
[2021-08-16 16:38] VITALS: BP_SYST 129
--- NOTE | 2021-08-16 19:10 | NUR ---
D/C Patient Patient discharge home via [facility]. Patient in stable condition. Patient's given medication reconciliation form and D/C instructions. Exit Care provided. MD discussed with patient the results and treatment provided. IV catheter removed, intact and dressing applied, no active bleeding. Colostomy bag in placed and emptied. All belongings sent with patient.
--- NOTE | 2021-08-17 10:24 | NUR ---
Discharge Planning: CHERYLP followed up with [facility] (F [phone] P [phone]) and sent the updated IV medication order.
== END 2021-08-16 19:10 | disposition home health service (06) | DRG 871 ==
LOC: SED 17:41 → STU 21:15
PROVIDERS: ADMIT Internal Medicine Hospice and Palliative Medicine; ATTEND Internal Medicine Hospice and Palliative Medicine
PROC: 5A1D70Z Performance of Urinary Filtration, Intermittent, Less than 6 Hours Per Day (ICD-10-PCS; principal; 2021-08-12)
PROC: 5A1D70Z Performance of Urinary Filtration, Intermittent, Less than 6 Hours Per Day (ICD-10-PCS; 2021-08-14)
DX: A41.9 Sepsis, unspecified organism (principal); G93.41 Metabolic encephalopathy; N18.6 End stage renal disease; N39.0 Urinary tract infection, site not specified; I12.0 Hypertensive chronic kidney disease with stage 5 chronic kidney disease or end stage renal disease; G20 Parkinson's disease; F02.80 Dementia in other diseases classified elsewhere, unspecified severity, without behavioral disturbance, psychotic disturbance, mood disturbance, and anxiety; D63.1 Anemia in chronic kidney disease; R53.81 Other malaise; E87.6 Hypokalemia; Z20.822 Contact with and (suspected) exposure to COVID-19; E11.65 Type 2 diabetes mellitus with hyperglycemia; E11.22 Type 2 diabetes mellitus with diabetic chronic kidney disease; Z88.5 Allergy status to narcotic agent; Z91.041 Radiographic dye allergy status; Z79.899 Other long term (current) drug therapy; Z74.01 Bed confinement status; Z85.038 Personal history of other malignant neoplasm of large intestine; Z86.16 Personal history of COVID-19; Z87.01 Personal history of pneumonia (recurrent); Z99.2 Dependence on renal dialysis
CPT/HCPCS: 36415; 70450-TC; 71045; 76376; 80048; 80053; 81000; 82962; 83735; 84100; 84484; 85025; 85651-TC; 86140; 87081; 87086; 87186-TC; 90935; 90937; 92526-GN; 92610-GN; 93005; 97110-GP; 97163-GP; 99285; G0378; J2543; J3370; J7050

== ENCOUNTER 2021-10-10 19:39 | Inpatient (IN) | payer OTHER, SELFPAY ==
[~2021-10-10] VITALS: Ht 175.3 cm; Wt 95.3 kg
[2021-10-10 19:45] VITALS: BP_SYST 115
--- NOTE | 2021-10-10 19:58 | NUR ---
Placed in room 6 . Placed on quality assurance monitor chassis, blood pressure machine and pulse oximeter. To gown for exam. Side rails up. Report given to STEPHANIE JOHNSTON.
--- NOTE | 2021-10-10 20:09 | NUR ---
ER Dr. Walton at bedside examining patient.
--- NOTE | 2021-10-10 20:25 | NUR ---
Assumed total care of patient. Patient AAO x3, GCS 14, BIB BLS from home c/o generalized weakness and SOB. Patient arrived on 2L nasal cannula with O2 saturation of 98%. Patient history of dialysis with port on right upper arm. Patient received dialysis today. Patient hx of parkinsons. Per EMS, of patient concerned he has UTI. Patient on quality assurance monitor final, VSS, breathing even and unlabored, symmetrical chest rise and fall. No signs of acute distress noted. Will continue to monitor.
--- NOTE | 2021-10-10 20:32 | NUR ---
Lab at bedside drawing blood work
--- NOTE | 2021-10-10 20:38 | NUR ---
pv installer tech at bedside performing EKG
--- NOTE | 2021-10-10 20:42 | NUR ---
Radiology at bedside for chest xray
--- NOTE | 2021-10-10 20:44 | NUR ---
Patient placed on room air. Patient O2 saturation 94%. MD notified.
[2021-10-10 20:53] LABS: BASOPHILS % (AUTO) 0.3 % (0.0-2.0); EOSINOPHILS # (AUTO) 0.2 K/uL (0.0-0.4); EOSINOPHILS % (AUTO) 1.2 % (0.0-4.0); HEMATOCRIT 34.3 % (36-54); LYMPHOCYTES # (AUTO) 0.3 K/uL (1.0-5.5); LYMPHOCYTES % (AUTO) 1.4 % (20.5-51.5); MEAN CORPUSCULAR HEMOGLOBIN 28 pg (27-31); MEAN CORPUSCULAR HGB CONC 32 % (32-36); MEAN CORPUSCULAR VOLUME 88 fL (79.0-98.0); MONOCYTES % (AUTO) 5.7 % (1.7-9.3); NEUTROPHILS # (AUTO) 16.6 K/uL (1.8-7.7); NEUTROPHILS % (AUTO) 91.4 % (40.0-70.0); PLATELET COUNT (AUTO) 269 K/uL (130-430); RED BLOOD CELL COUNT(AUTO) 3.89 MIL/uL (4.2-6.2); WHITE BLOOD COUNT (AUTO) 18.2 K/uL (4.8-10.8)
[2021-10-10 21:00] LABS: ANION GAP 8 (5-15); CALCIUM 8.6 mg/dL (8.4-11.0); CHLORIDE 101 mmol/L (98-107); GLUCOSE 178 mg/dL (70-99); SODIUM SERUM 134 mmol/L (136-145); UREA NITROGEN, BLOOD 49 mg/dL (8-21)
[2021-10-10 21:09] LABS: ALANINE AMINOTRANSFERASE 10 U/L (12-78); ALBUMIN 3.3 g/dL (3.4-4.8); ASPARTATE AMINOTRANSFERASE 19 U/L (10-37); TOTAL BILIRUBIN 0.3 mg/dL (0.0-1.0)
--- NOTE | 2021-10-10 21:16 | NUR ---
Update given to of patient, Vicenta.
--- NOTE | 2021-10-10 21:37 | NUR ---
Patient transported to radiology via GURNEY, accompanied by FIELD APPRAISER.
--- NOTE | 2021-10-10 21:50 | NUR ---
Returned from radiology, back to [facility].
--- NOTE | 2021-10-10 22:00 | NUR ---
# 16 FR In and Out catheter with use of sterile technique. Immediate return of 100 ml CLOUDY YELLOW urine noted. Urine sample collected and sent to lab. Pt tolerated procedure WELL.
[2021-10-10 22:17] LABS: BILIRUBIN,URINE NEGATIVE (NEGATIVE); COLOR,URINE YELLOW (YELLOW); GLUCOSE,URINE NEGATIVE (NEGATIVE); KETONES,URINE NEGATIVE (NEGATIVE); LEUKOCYTE ESTERASE ,URINE 2+ (NEGATIVE); NITRITE, URINE NEGATIVE (NEGATIVE); PROTEIN URINE 2+ (NEGATIVE); UROBILINOGEN,URINE 0.2 (0.2-1.0)
[2021-10-10 22:18] LABS: BLOOD, URINE TRACE (NEGATIVE); CLARITY/URINE HAZY (CLEAR)
[2021-10-10 22:30] LABS: BACTERIA,URINE MODERATE /HPF (None Seen); MUCUS,URINE None Seen /LPF (None Seen); WBC,URINE >100 /HPF (0-3)
--- NOTE | 2021-10-10 22:42 | NUR ---
Dr. Walton updating of patient via phone
[2021-10-10] MEDS ORDERED: cefTRIAXone 1 GM VIAL IM ONE (22:45)
--- NOTE | 2021-10-10 22:50 | NUR ---
# 20 gauge angiocath placed to left hand. Use of asceptic technique. Opsite placed over site. Blood return noted. Flushed with 10 cc of normal saline. No evidence of infiltration noted. Patient tolerated well.
[2021-10-10] MEDS ORDERED: cefTRIAXone 1 GM in D5W 50 ML IV ONE (23:00)
[2021-10-10] MEDS ORDERED: cefTRIAXone 1 GM IVPB PREMIX 50 ML IV ONE (23:00)
--- NOTE | 2021-10-10 23:05 | NUR ---
Blood cultures drawn, prior to administration of antibiotic.
--- NOTE | 2021-10-10 23:05 | NUR ---
Patient will be admitted to care of Dr. Torres. Admitted to TELE unit. Will go to room PENDING. Belongings list completed. Complete and up to date summary report printed. SBAR report to be given at bedside with opportunity for questions.
--- NOTE | 2021-10-10 23:23 | NUR ---
Medication reconciliation completed with information provided by patients . Any prior medication reconciliation on file was reviewed and corrected.
--- NOTE | 2021-10-11 00:19 | NUR ---
Patient resting quietly. No acute distress noted. Vital signs within normal range.
--- NOTE | 2021-10-11 01:05 | NUR ---
Patient resting quietly. No acute distress noted. Vital signs within normal range, on safety analyst. Will continue to monitor.
--- NOTE | 2021-10-11 02:19 | NUR ---
Patient resting quietly. No acute distress noted. Vital signs within normal range.
--- NOTE | 2021-10-11 03:19 | NUR ---
Patient resting quietly. No acute distress noted. Vital signs within normal range.
--- NOTE | 2021-10-11 04:19 | NUR ---
Patient resting quietly. No acute distress noted. Vital signs within normal range.
--- NOTE | 2021-10-11 05:19 | NUR ---
Patient resting quietly. No acute distress noted. Vital signs within normal range.
--- NOTE | 2021-10-11 06:05 | NUR ---
Lab at bedside for blood draw
--- NOTE | 2021-10-11 06:09 | NUR ---
Patient assisted with urinal to use the restroom. No signs of acute distress noted.
[2021-10-11 06:23] LABS: BASOPHILS # (AUTO) 0.2 K/uL (0.0-0.2); BASOPHILS % (AUTO) 1.1 % (0.0-2.0); EOSINOPHILS # (AUTO) 0.4 K/uL (0.0-0.4); EOSINOPHILS % (AUTO) 2.7 % (0.0-4.0); HEMATOCRIT 33.2 % (36-54); HEMOGLOBIN 10.8 g/dL (14.0-18.0); LYMPHOCYTES % (AUTO) 6.1 % (20.5-51.5); MEAN CORPUSCULAR HEMOGLOBIN 28 pg (27-31); MEAN CORPUSCULAR HGB CONC 32 % (32-36); MEAN CORPUSCULAR VOLUME 87 fL (79.0-98.0); MONOCYTES # (AUTO) 1.1 K/uL (0.0-1.0); MONOCYTES % (AUTO) 6.7 % (1.7-9.3); NEUTROPHILS # (AUTO) 13.6 K/uL (1.8-7.7); NEUTROPHILS % (AUTO) 83.4 % (40.0-70.0); PLATELET COUNT (AUTO) 254 K/uL (130-430); RED BLOOD CELL COUNT(AUTO) 3.81 MIL/uL (4.2-6.2); RED CELL DISTRIBUTION WIDTH 18.1 % (9.0-15.0); WHITE BLOOD COUNT (AUTO) 16.3 K/uL (4.8-10.8)
[2021-10-11 06:41] LABS: ANION GAP 11 (5-15); CALCIUM 8.3 mg/dL (8.4-11.0); CHLORIDE 103 mmol/L (98-107); CREATININE 2.61 mg/dL (0.55-1.30); GLUCOSE 142 mg/dL (70-99); POTASSIUM 3.7 mmol/L (3.5-5.1); SODIUM SERUM 137 mmol/L (136-145); UREA NITROGEN, BLOOD 53 mg/dL (8-21)
[2021-10-11 06:45] LABS: ALBUMIN 2.9 g/dL (3.4-4.8); ASPARTATE AMINOTRANSFERASE 19 U/L (10-37); CHOLESTEROL 125 mg/dL (<200); HDL CHOLESTEROL 40 mg/dL (>45); LDL CHOLESTEROL 54 mg/dL (<100); TOTAL BILIRUBIN 0.2 mg/dL (0.0-1.0); TRIGLYCERIDES 172 mg/dL (30-150)
--- NOTE | 2021-10-11 07:13 | NUR ---
Report given to VICKIE Roblero for continuation of care.
--- NOTE | 2021-10-11 07:15 | NUR ---
Report received from Mercedes JOHNSTON to assume care of patient
--- NOTE | 2021-10-11 07:30 | NUR ---
Patient sleeping. Easily arousable to voice. Weakness noted when attempting to assist patient to reposition in bed. SL to L hand flushing easily with no resistance. Ostomy bag intact. Small amount stool note din bag. Awaiting hospital room. VSS. Will continue to monitor.
--- NOTE | 2021-10-11 07:49 | NUR ---
Patient to be transported to room 103B via gurney.
[2021-10-11 08:11] LABS: ALANINE AMINOTRANSFERASE 8 U/L (12-78)
[2021-10-11 08:30] VITALS: BP_SYST 136
[2021-10-11] MEDS ORDERED: MIDODRINE HCL 5 MG TABLET (PROAMATINE) PO PRN (10:00)
[2021-10-11] MEDS ORDERED: LORazepam 2 MG/ML VIAL IVP PRN (10:00)
[2021-10-11] MEDS ORDERED: ONDANSETRON HCL 4 MG/2 ML VIAL IVP PRN (10:00)
[2021-10-11] MEDS ORDERED: ACETAMINOPHEN 325 MG TABLET PO PRN (10:00)
--- NOTE | 2021-10-11 10:09 | NUR ---
CONSULTATION: REASON FOR CONSULT: ESRD CONSULTING PHYSICIAN: ANIKA STODDARD ORDERED BY DANIKA SPOKE WITH ROSALES [phone] DR BAIRES IS SALES CONSULTANT FOR DR STODDARD
--- NOTE | 2021-10-11 10:21 | NUR ---
CONSULTATION: REASON FOR CONSULT: UTI CONSULTING PHYSICIAN: August ELKINS ORDERED BY: DANIKA SPOKE WITH DR AVILA ON THE PHONE AND IS AWARE OF THE CONSULT [phone]
[2021-10-11 10:40] VITALS: BP_SYST 137
[2021-10-11] MEDS: cefTRIAXone 1 GM IVPB PREMIX 50 ML IV SCH (11:59)
[2021-10-11 12:44] VITALS: BP_SYST 132
[2021-10-11] MEDS ORDERED: NORMAL SALINE 5 ML DISP.SYRIN IVF SCH (14:00)
[2021-10-11] MEDS: CARBIDOPA/LEVODOPA 25/100 MG TABLET PO SCH ×3 (14:18→21:57)
[2021-10-11] MEDS: NORMAL SALINE 5 ML DISP.SYRIN IVF SCH ×2 (14:31→21:57)
[2021-10-11 16:20] VITALS: BP_SYST 130
--- NOTE | 2021-10-11 18:50 | NUR ---
CLOSING NOTE PT resting in bed, at bedside. AxO x4. No signs of respiratory distress on 2L oxygen via nasal canula. PT denies pain. IV on L hand clean, dry, intact. Dressing on AV shunt on right upper arm is clean, dry and intact. Safety checks were done, call light left within reach.
[2021-10-11] MEDS: ALBUTEROL SULFATE 0.083% 2.5 MG/3 ML VIAL.NEB INH PRN (20:17)
[2021-10-11] MEDS: IPRATROPIUM BROM 0.5 MG/2.5 ML VIAL.NEB (ATROVENT) INH PRN (20:17)
[2021-10-11 20:48] VITALS: BP_SYST 109
[2021-10-11] MEDS ORDERED: cefTRIAXone 1 GM IVPB PREMIX 50 ML IV SCH (21:00)
[2021-10-11] MEDS: FUROSEMIDE 40 MG TABLET PO SCH (21:56)
[2021-10-11] MEDS: ATORVASTATIN 10 MG TABLET PO SCH (21:56)
[2021-10-12 00:41] VITALS: BP_SYST 127
[2021-10-12] MEDS: NORMAL SALINE 5 ML DISP.SYRIN IVF SCH ×3 (06:05→21:37)
[2021-10-12 06:56] LABS: BASOPHILS # (AUTO) 0.1 K/uL (0.0-0.2); BASOPHILS % (AUTO) 0.5 % (0.0-2.0); EOSINOPHILS % (AUTO) 9.4 % (0.0-4.0); HEMATOCRIT 31.1 % (36-54); HEMOGLOBIN 10.2 g/dL (14.0-18.0); LYMPHOCYTES # (AUTO) 2.2 K/uL (1.0-5.5); LYMPHOCYTES % (AUTO) 21.3 % (20.5-51.5); MEAN CORPUSCULAR HEMOGLOBIN 29 pg (27-31); MEAN CORPUSCULAR HGB CONC 33 % (32-36); MEAN CORPUSCULAR VOLUME 88 fL (79.0-98.0); MONOCYTES % (AUTO) 9.6 % (1.7-9.3); NEUTROPHILS # (AUTO) 6.1 K/uL (1.8-7.7); NEUTROPHILS % (AUTO) 59.2 % (40.0-70.0); PLATELET COUNT (AUTO) 246 K/uL (130-430); RED BLOOD CELL COUNT(AUTO) 3.54 MIL/uL (4.2-6.2); RED CELL DISTRIBUTION WIDTH 18.4 % (9.0-15.0)
[2021-10-12 07:04] LABS: ALBUMIN 2.9 g/dL (3.4-4.8); ANION GAP 10 (5-15); ASPARTATE AMINOTRANSFERASE 22 U/L (10-37); CALCIUM 8.2 mg/dL (8.4-11.0); CHLORIDE 102 mmol/L (98-107); CREATININE 2.28 mg/dL (0.55-1.30); GLUCOSE 129 mg/dL (70-99); PHOSPHORUS 4.5 mg/dL (2.7-4.5); POTASSIUM 3.3 mmol/L (3.5-5.1); SODIUM SERUM 137 mmol/L (136-145); TOTAL BILIRUBIN 0.2 mg/dL (0.0-1.0); UREA NITROGEN, BLOOD 52 mg/dL (8-21)
[2021-10-12 07:23] LABS: ALANINE AMINOTRANSFERASE 8 U/L (12-78)
--- NOTE | 2021-10-12 08:30 | NUR ---
PATIENT IS AWAKE, ALERT, ORIENTED X 4 TO NAME, PERSON, PLACE, AND TIME. RESPIRATION EVEN AND UNLABORED NO S/S OF ANY ACUTE DISTRESS NOTED. ABLE TO VERBALIZE NEEDS NO C/O ANY PAIN OR DISCOMFORT NOTED. ABDOMEN SOFT AND NON-DISTENDED, POSITIVE BOWEL SOUND X 4 NO N/V NOTED. LEFT MID QUADRANT COLOSTOMY WITH FORM DARK YELLOW GREENISH FECAL MATTER. SKIN WARM AND DRY, REDNESS BILATERAL BUTTOCK
[2021-10-12] MEDS: NEPHROVITE, (FOLIC ACID/VITAMIN B COMP W-C 1 TAB) PO SCH (08:35)
[2021-10-12] MEDS: FERROUS GLUCONATE 324 MG TABLET PO SCH (09:36)
[2021-10-12] MEDS: FUROSEMIDE 40 MG TABLET PO SCH ×2 (09:37→21:33)
[2021-10-12] MEDS: CARBIDOPA/LEVODOPA 25/100 MG TABLET PO SCH ×4 (09:37→21:32)
[2021-10-12] MEDS: ASCORBIC ACID 500 MG TABLET PO SCH (09:38)
--- NOTE | 2021-10-12 10:59 | NUR ---
Nutrition Update : Alex Scale: 16 noted Pt admitted for Encounter for screening for Lipid disorder, Urinary Tract Infection. Diet: Cardiac BMI: 32.9 kg/m2 RD to follow per nutrition care standards.
[2021-10-12 12:16] LABS: WHITE BLOOD COUNT (AUTO) 10.3 K/uL (4.8-10.8)
[2021-10-12 12:43] VITALS: BP_SYST 126
[2021-10-12 13:26] LABS: ERYTHROCYTE SEDIMENTATION RATE 39 MM/HR (0-15)
[2021-10-12 15:25] LABS: C-REACTIVE PROTEIN QUANT 6.2 mg/dL (0-0.5)
[2021-10-12 16:00] VITALS: BP_SYST 124
[2021-10-12] MEDS: cefTRIAXone 1 GM IVPB PREMIX 50 ML IV SCH (16:55)
--- NOTE | 2021-10-12 18:09 | NUR ---
PATIENT BECOME AGITATED AGAIN, MEDICATED WITH ATIVAN PRN PER FAMILY REQUEST, EFFECTIVE 15 MINUTES POST ADMINISTRATION. F/C WITH SLIGHT PINKISH TINGED W/O ANY CLOT NOTED. TOLERATED PO WELL WITH FAIR APPETITE FOR LUNCH. REESTABLISH NEW IV HEPLOCK FOR IV FLUID AND ANTIBIOTIC. NEW UROLOGY CONSULT DR. GRESHAM WILL SEE PATIENT TOMORROW, ORDERED LACY OF THE BLADDER. Addendum: 10/12/21 at 1813 by Marcela film booker DISREGARD ABOVE NOTE, INCORRECT WEIGH MACHINE OPERATOR
[2021-10-12] MEDS ORDERED: ALBUMIN HUMAN 25% 50 ML IV ONE ×2 (18:30→19:15)
--- NOTE | 2021-10-12 19:00 | NUR ---
PATIENT IS AWAKE, ALERT, ORIENTED X 4 TO NAME, PERSON, PLACE, AND TIME. RESPIRATION EVEN AND UNLABORED NO S/S OF ANY ACUTE DISTRESS NOTED. ABLE TO VERBALIZE NEEDS NO C/O ANY PAIN OR DISCOMFORT NOTED. ABDOMEN SOFT AND NON-DISTENDED, POSITIVE BOWEL SOUND X 4 NO N/V NOTED. LEFT MID QUADRANT COLOSTOMY WITH FORM DARK YELLOW GREENISH FECAL MATTER. SKIN WARM AND DRY, REDNESS BILATERAL BUTTOCK. PATIENT EDUCATED TO MEDICAL MANAGEMENT. NO ACUTE DISTRESS NOTED.
[2021-10-12] MEDS: ATORVASTATIN 10 MG TABLET PO SCH (21:32)
[2021-10-12 21:33] VITALS: BP_SYST 133
[2021-10-13 00:49] VITALS: BP_SYST 155
[2021-10-13 04:00] VITALS: BP_SYST 138
[2021-10-13] MEDS: NORMAL SALINE 5 ML DISP.SYRIN IVF SCH ×3 (05:25→22:00)
--- NOTE | 2021-10-13 07:31 | NUR ---
PHYSICAL THERAPY CO-SIGN The Physical Therapy Progress Notes documented by [employer] have been reviewed. Reviewed/Co-Signed by: Hernandez Lino Documentation Done by: Brandee Diamond PTA Addendum: 10/13/21 at 0732 by Hernandez Lino PT Amended: Links added.
[2021-10-13] MEDS: CARBIDOPA/LEVODOPA 25/100 MG TABLET PO SCH ×4 (09:26→21:00)
[2021-10-13] MEDS: ASCORBIC ACID 500 MG TABLET PO SCH (09:26)
[2021-10-13] MEDS: FERROUS GLUCONATE 324 MG TABLET PO SCH (09:27)
[2021-10-13] MEDS: NEPHROVITE, (FOLIC ACID/VITAMIN B COMP W-C 1 TAB) PO SCH (09:27)
[2021-10-13] MEDS: FUROSEMIDE 40 MG TABLET PO SCH ×2 (09:27→21:00)
[2021-10-13] MEDS: cefTRIAXone 1 GM IVPB PREMIX 50 ML IV SCH (12:04)
[2021-10-13 12:28] VITALS: BP_SYST 141
--- NOTE | 2021-10-13 12:30 | NUR ---
PHYSICAL THERAPY TREATMENT WILL BE HELD TODAY DUE TO RIGHT IJ VEIN THROMBUS. PLAN: CHECK WITH RN/MD TOMORROW FOR MEDICAL CLEARANCE.
[2021-10-13] MEDS: ALBUTEROL SULFATE 0.083% 2.5 MG/3 ML VIAL.NEB INH PRN (12:58)
[2021-10-13] MEDS: IPRATROPIUM BROM 0.5 MG/2.5 ML VIAL.NEB (ATROVENT) INH PRN (12:58)
--- NOTE | 2021-10-13 13:18 | NUR ---
Dietitian Recommendations * Continue cardiac diet LP, RD Please refer to Nutrition Assessment for details. Addendum: 10/13/21 at [address] Amended: Links added.
[2021-10-13 16:37] VITALS: BP_SYST 134
[2021-10-13 20:00] VITALS: BP_SYST 138
[2021-10-13] MEDS: APIXABAN 2.5 MG TABLET PO SCH (21:00)
[2021-10-13] MEDS: ATORVASTATIN 10 MG TABLET PO SCH (21:00)
[2021-10-14] VITALS: BP_SYST 134
[2021-10-14 01:14] VITALS: BP_SYST 135
[2021-10-14 04:00] VITALS: BP_SYST 132
[2021-10-14] MEDS: NORMAL SALINE 5 ML DISP.SYRIN IVF SCH ×3 (05:27→21:58)
[2021-10-14 08:00] VITALS: BP_SYST 115
[2021-10-14 09:14] LABS: BASOPHILS # (AUTO) 0.1 K/uL (0.0-0.2); BASOPHILS % (AUTO) 0.9 % (0.0-2.0); EOSINOPHILS # (AUTO) 0.4 K/uL (0.0-0.4); EOSINOPHILS % (AUTO) 5.4 % (0.0-4.0); HEMATOCRIT 33.2 % (36-54); HEMOGLOBIN 10.9 g/dL (14.0-18.0); LYMPHOCYTES # (AUTO) 1.8 K/uL (1.0-5.5); LYMPHOCYTES % (AUTO) 23.5 % (20.5-51.5); MEAN CORPUSCULAR HEMOGLOBIN 28 pg (27-31); MEAN CORPUSCULAR HGB CONC 33 % (32-36); MEAN CORPUSCULAR VOLUME 86 fL (79.0-98.0); MONOCYTES # (AUTO) 1.1 K/uL (0.0-1.0); MONOCYTES % (AUTO) 15.2 % (1.7-9.3); NEUTROPHILS # (AUTO) 4.1 K/uL (1.8-7.7); PLATELET COUNT (AUTO) 251 K/uL (130-430); RED BLOOD CELL COUNT(AUTO) 3.85 MIL/uL (4.2-6.2); RED CELL DISTRIBUTION WIDTH 17.5 % (9.0-15.0); WHITE BLOOD COUNT (AUTO) 7.5 K/uL (4.8-10.8)
[2021-10-14 09:25] LABS: ALANINE AMINOTRANSFERASE 9 U/L (12-78); ANION GAP 11 (5-15); ASPARTATE AMINOTRANSFERASE 20 U/L (10-37); C-REACTIVE PROTEIN QUANT 2.8 mg/dL (0-0.5); CALCIUM 8.4 mg/dL (8.4-11.0); CHLORIDE 100 mmol/L (98-107); GLUCOSE 128 mg/dL (70-99); POTASSIUM 3.7 mmol/L (3.5-5.1); SODIUM SERUM 136 mmol/L (136-145); TOTAL BILIRUBIN 0.2 mg/dL (0.0-1.0); UREA NITROGEN, BLOOD 47 mg/dL (8-21)
--- NOTE | 2021-10-14 09:53 | NUR ---
Dr. Kerr, gave clearance to resume Physical Therapy treatment.
[2021-10-14] MEDS ORDERED: FLUCONAZOLE 200 MG TABLET (DIFLUCAN) PO ONE (10:00)
--- NOTE | 2021-10-14 10:04 | NUR ---
Discharge Planning: DCP faxed pt referral to [facility] [phone], DCP to follow up. Addendum: 10/15/21 at 1418 by Andre Stout RN late entry: discussed dcp with [place]/[facility]: aware of the HH set up, the pt will need ambulance transfer to home as well.
[2021-10-14] MEDS: CARBIDOPA/LEVODOPA 25/100 MG TABLET PO SCH ×4 (10:19→21:53)
[2021-10-14] MEDS: NEPHROVITE, (FOLIC ACID/VITAMIN B COMP W-C 1 TAB) PO SCH (10:19)
[2021-10-14] MEDS: ASCORBIC ACID 500 MG TABLET PO SCH (10:19)
[2021-10-14] MEDS: FERROUS GLUCONATE 324 MG TABLET PO SCH (10:19)
[2021-10-14] MEDS: APIXABAN 2.5 MG TABLET PO SCH ×2 (10:20→21:45)
[2021-10-14] MEDS: FUROSEMIDE 40 MG TABLET PO SCH ×2 (10:24→21:44)
[2021-10-14 12:19] LABS: ERYTHROCYTE SEDIMENTATION RATE 35 MM/HR (0-15)
[2021-10-14] MEDS: cefTRIAXone 1 GM IVPB PREMIX 50 ML IV SCH (12:19)
[2021-10-14] MEDS: ALBUTEROL SULFATE 0.083% 2.5 MG/3 ML VIAL.NEB INH PRN (12:59)
[2021-10-14] MEDS: IPRATROPIUM BROM 0.5 MG/2.5 ML VIAL.NEB (ATROVENT) INH PRN (12:59)
[2021-10-14 16:00] VITALS: BP_SYST 120
[2021-10-14 20:00] VITALS: BP_SYST 104
[2021-10-14] MEDS: ATORVASTATIN 10 MG TABLET PO SCH (21:44)
[2021-10-15] VITALS (7 sets, daily range): BP systolic 96–127
[2021-10-15] MEDS: NORMAL SALINE 5 ML DISP.SYRIN IVF SCH ×3 (04:53→20:17)
[2021-10-15 08:06] LABS: ANION GAP 9 (5-15); CALCIUM 8.4 mg/dL (8.4-11.0); CHLORIDE 98 mmol/L (98-107); CREATININE 1.98 mg/dL (0.55-1.30); GLUCOSE 118 mg/dL (70-99); PHOSPHORUS 4.9 mg/dL (2.7-4.5); POTASSIUM 3.9 mmol/L (3.5-5.1); SODIUM SERUM 135 mmol/L (136-145); UREA NITROGEN, BLOOD 37 mg/dL (8-21)
[2021-10-15 08:38] LABS: BASOPHILS # (AUTO) 0.1 K/uL (0.0-0.2); BASOPHILS % (AUTO) 1.2 % (0.0-2.0); EOSINOPHILS # (AUTO) 0.7 K/uL (0.0-0.4); EOSINOPHILS % (AUTO) 7.7 % (0.0-4.0); HEMATOCRIT 33.4 % (36-54); HEMOGLOBIN 10.7 g/dL (14.0-18.0); LYMPHOCYTES # (AUTO) 2.5 K/uL (1.0-5.5); LYMPHOCYTES % (AUTO) 28.3 % (20.5-51.5); MEAN CORPUSCULAR HEMOGLOBIN 28 pg (27-31); MEAN CORPUSCULAR HGB CONC 32 % (32-36); MEAN CORPUSCULAR VOLUME 87 fL (79.0-98.0); MONOCYTES # (AUTO) 1.3 K/uL (0.0-1.0); MONOCYTES % (AUTO) 15.5 % (1.7-9.3); NEUTROPHILS # (AUTO) 4.1 K/uL (1.8-7.7); NEUTROPHILS % (AUTO) 47.3 % (40.0-70.0); PLATELET COUNT (AUTO) 260 K/uL (130-430); RED BLOOD CELL COUNT(AUTO) 3.84 MIL/uL (4.2-6.2); RED CELL DISTRIBUTION WIDTH 18.1 % (9.0-15.0); WHITE BLOOD COUNT (AUTO) 8.7 K/uL (4.8-10.8)
[2021-10-15] MEDS: ASCORBIC ACID 500 MG TABLET PO SCH (09:53)
[2021-10-15] MEDS: NEPHROVITE, (FOLIC ACID/VITAMIN B COMP W-C 1 TAB) PO SCH (09:53)
[2021-10-15] MEDS: FLUCONAZOLE 200 MG TABLET (DIFLUCAN) PO SCH (09:54)
[2021-10-15] MEDS: FERROUS GLUCONATE 324 MG TABLET PO SCH (09:54)
[2021-10-15] MEDS: FUROSEMIDE 40 MG TABLET PO SCH ×2 (09:54→21:06)
[2021-10-15] MEDS: APIXABAN 2.5 MG TABLET PO SCH ×2 (09:54→21:13)
[2021-10-15] MEDS: CARBIDOPA/LEVODOPA 25/100 MG TABLET PO SCH ×4 (09:56→21:03)
[2021-10-15 10:35] LABS: C-REACTIVE PROTEIN QUANT 3.8 mg/dL (0-0.5)
[2021-10-15] MEDS ORDERED: FLUC200T PO (12:15)
[2021-10-15] MEDS ORDERED: CEPH250C PO (12:15)
[2021-10-15] MEDS ORDERED: APIX2.5T PO (12:15)
[2021-10-15] MEDS: cefTRIAXone 1 GM IVPB PREMIX 50 ML IV SCH (12:29)
[2021-10-15 13:03] LABS: ERYTHROCYTE SEDIMENTATION RATE 36 MM/HR (0-15)
--- NOTE | 2021-10-15 14:18 | NUR ---
CM: updated clinicals with [place], [place] # [phone] : stated the home health already set up with [facility]. She will be calling spouse and dr. Kerr and will arrange ambulance to home. -- VICKIE Summers aware. Addendum: 10/17/21 at 1050 by Andre Stout RN late entry for 1630 pm on 10/15/21: per [place], her licensed club manager did not approve the ambulance to home. Said the insurance changed to [facility]/[employer] as of today. VICKIE Summers made aware.
--- NOTE | 2021-10-15 15:47 | NUR ---
DR LINARES, HOSPITALIST NURSING CONSULTANT FOR DR GARNICA WAS CALLED, RE: DISCHARGE ORDER TO HOME WITH HH. SPOKE WITH KAYLEE.
--- NOTE | 2021-10-15 16:15 | NUR ---
DC HOME WITH FOR PT PER DR LINARES. LEFT MESSAGE WITH [facility] #[phone].
--- NOTE | 2021-10-15 17:00 | NUR ---
DUE TO CHANGE OF INSURANCE TODAY, [facility] SAID THEY ARE NOT ABLE TO GET TRANSPORT FOR PATIENT. CRISTÓBAL WILL CALL THE .
--- NOTE | 2021-10-15 19:13 | NUR ---
LARGE AMT OF OUTPUT FROM COLOSTOMY BAG DRAINED.
--- NOTE | 2021-10-15 20:00 | NUR ---
OPENING NOTE PATIENT RESTING IN BED WITH AT BED SIDE. PATIENT ON ROOM AIR OSTOMY BEG WAS CHANGED DUE TO LEAKAGE. SITE IS PINK WITH NO NOTED REDNESS.
[2021-10-15] MEDS: ATORVASTATIN 10 MG TABLET PO SCH (21:03)
[2021-10-16 00:52] VITALS: BP_SYST 110
[2021-10-16] MEDS: NORMAL SALINE 5 ML DISP.SYRIN IVF SCH ×3 (04:46→20:50)
--- NOTE | 2021-10-16 07:40 | NUR ---
OPENING NOTE PT is awake, AxO x4. PT denies pain and shows no sign of respiratory distress on room air. Repositioned PT for comfort and to prevent skin breakdown. IV on left hand is clean, dry and intact. Colostomy bag is in place with no sign of leakage. AV shunt site on right upper arm is clean, dry and intact. Safety checks were made and call light left within reach.
[2021-10-16 08:00] VITALS: BP_SYST 113
[2021-10-16] MEDS: FUROSEMIDE 40 MG TABLET PO SCH ×2 (09:04→20:49)
[2021-10-16] MEDS: NEPHROVITE, (FOLIC ACID/VITAMIN B COMP W-C 1 TAB) PO SCH (09:04)
[2021-10-16] MEDS: CARBIDOPA/LEVODOPA 25/100 MG TABLET PO SCH ×4 (09:04→20:46)
[2021-10-16] MEDS: ASCORBIC ACID 500 MG TABLET PO SCH (09:04)
[2021-10-16] MEDS: FLUCONAZOLE 200 MG TABLET (DIFLUCAN) PO SCH (09:05)
[2021-10-16] MEDS: FERROUS GLUCONATE 324 MG TABLET PO SCH (09:05)
[2021-10-16] MEDS: APIXABAN 2.5 MG TABLET PO SCH ×2 (09:06→20:45)
[2021-10-16] MEDS: cefTRIAXone 1 GM IVPB PREMIX 50 ML IV SCH (10:52)
[2021-10-16 12:00] VITALS: BP_SYST 112
--- NOTE | 2021-10-16 14:24 | NUR ---
[employer]/HCP CM [facility] WAS CALLED, RE: REQUEST FOR AMBULANCE TRANSPO TO HOME. PER LUIS INSURANCE WAS TERMINATED WITH [employer]/ HCP TOO M AKING IT IMPOSSIBLE FOR HER TO GIVE TRANSPORTATION AUTH FOR HOME.
[2021-10-16 16:43] VITALS: BP_SYST 111
[2021-10-16 20:00] VITALS: BP_SYST 112
--- NOTE | 2021-10-16 20:00 | NUR ---
OPENING NOTE PATIENT RESTING IN BED. VITALS TAKEN ALL WITHIN NORMAL LIMIT. HE WAS CHANGED AND REPOSITIONED. NO NEW SKIN ISSUES TO REPORT. PATIENT STILL HAS A PINK AREA ON HIS BOTTOM WITH SKIN INTACT.
--- NOTE | 2021-10-16 20:05 | NUR ---
Pagedanilo Gupta, business applications developer for Dr. Pacheco s/w Zhanna
[2021-10-16] MEDS: ATORVASTATIN 10 MG TABLET PO SCH (20:49)
[2021-10-17 01:01] VITALS: BP_SYST 119
[2021-10-17] MEDS: NORMAL SALINE 5 ML DISP.SYRIN IVF SCH ×2 (04:52→14:24)
--- NOTE | 2021-10-17 06:20 | NUR ---
CLOSING NOTE PATIENT WAS GIVEN A BED BATH AND ORAL CARE COMPLETED. I.V SITE IS PATENT WITH NO NOTED EDEMA OR REDNESS. NO NEW SKIN ISSUES NOTED.
[2021-10-17] MEDS: NEPHROVITE, (FOLIC ACID/VITAMIN B COMP W-C 1 TAB) PO SCH (08:53)
[2021-10-17] MEDS: FERROUS GLUCONATE 324 MG TABLET PO SCH (08:53)
[2021-10-17] MEDS: FLUCONAZOLE 200 MG TABLET (DIFLUCAN) PO SCH (08:53)
[2021-10-17] MEDS: CARBIDOPA/LEVODOPA 25/100 MG TABLET PO SCH ×3 (08:53→18:07)
[2021-10-17] MEDS: ASCORBIC ACID 500 MG TABLET PO SCH (08:53)
[2021-10-17] MEDS: FUROSEMIDE 40 MG TABLET PO SCH (08:54)
[2021-10-17] MEDS: APIXABAN 2.5 MG TABLET PO SCH (08:58)
--- NOTE | 2021-10-17 10:50 | NUR ---
CM: s/w brady Lyle/[facility] regarding dc pt to home with ambulance transfer. Per [facility] Lyle is at risk until pt is discharged. She will arrange the ambulance on will call. Made aware that the pt is due for HD today. CM will call back once pt is ready for dc.
[2021-10-17] MEDS: ALBUTEROL SULFATE 0.083% 2.5 MG/3 ML VIAL.NEB INH PRN (11:30)
[2021-10-17] MEDS: IPRATROPIUM BROM 0.5 MG/2.5 ML VIAL.NEB (ATROVENT) INH PRN (11:30)
--- NOTE | 2021-10-17 11:36 | NUR ---
RN CALLED FOR PT. PT FEELS SOB. CURRENTLY ON DIALYSIS. HHN PRN TX GIVEN WITH NO ADVERSE REACTION. SPO2 99% HR 67. PT. AT BEDSIDE. WILL CONTINUE TO MONITOR PATIENT.
[2021-10-17] MEDS ORDERED: ALBUMIN HUMAN 25% 100 ML IV ONE ×2 (11:38→11:45)
[2021-10-17 12:43] VITALS: BP_SYST 115
[2021-10-17] MEDS ORDERED: guaiFENesin/DEXTROMETHORPHAN 10 ML UDC PO ONE ×2 (12:45→18:00)
[2021-10-17] MEDS ORDERED: guaiFENesin/DEXTROMETHORPHAN 10 ML UDC ONE (12:49)
[2021-10-17] MEDS: cefTRIAXone 1 GM IVPB PREMIX 50 ML IV SCH (14:24)
--- NOTE | 2021-10-17 15:42 | NUR ---
CM: Booked with [facility] , BLS transfer pt back to home with new insurance/[employer]. Next available ride is at 8 pm cotton picker operator. -- VICKIE Kaur made aware.
[2021-10-17 15:43] VITALS: BP_SYST 110
[2021-10-17 18:39] VITALS: BP_SYST 110
[2021-10-17 20:00] VITALS: BP_SYST 120
--- NOTE | 2021-10-18 04:17 | NUR ---
CLOSING NOTES PT AWAKE ALERT.DENIES PAIN OR DISCOMFORT.VITAL SIGN STABLE.PT.LEFT 2300 TO HOME WITH AMBULANCE NOTED.
== END 2021-10-17 23:00 | disposition home health service (06) | DRG 871 ==
LOC: SED 19:39 → STU 22:56 → SMU 10-12 11:03
PROVIDERS: ADMIT Internal Medicine Hospice and Palliative Medicine; ATTEND Internal Medicine Hospice and Palliative Medicine
PROC: 5A1D70Z Performance of Urinary Filtration, Intermittent, Less than 6 Hours Per Day (ICD-10-PCS; principal; 2021-10-12)
PROC: 5A1D70Z Performance of Urinary Filtration, Intermittent, Less than 6 Hours Per Day (ICD-10-PCS; 2021-10-14)
PROC: 5A1D70Z Performance of Urinary Filtration, Intermittent, Less than 6 Hours Per Day (ICD-10-PCS; 2021-10-17)
DX: A41.9 Sepsis, unspecified organism (principal); N18.6 End stage renal disease; J96.01 Acute respiratory failure with hypoxia; B37.49 Other urogenital candidiasis; E87.1 Hypo-osmolality and hyponatremia; I12.0 Hypertensive chronic kidney disease with stage 5 chronic kidney disease or end stage renal disease; I82.C11 Acute embolism and thrombosis of right internal jugular vein; Z20.822 Contact with and (suspected) exposure to COVID-19; D63.1 Anemia in chronic kidney disease; E78.5 Hyperlipidemia, unspecified; E83.41 Hypermagnesemia; E83.51 Hypocalcemia; E87.6 Hypokalemia; E88.09 Other disorders of plasma-protein metabolism, not elsewhere classified; G20 Parkinson's disease; Z79.01 Long term (current) use of anticoagulants; Z86.73 Personal history of transient ischemic attack (TIA), and cerebral infarction without residual deficits; Z91.041 Radiographic dye allergy status; Z93.3 Colostomy status; Z99.2 Dependence on renal dialysis; Z88.5 Allergy status to narcotic agent; Z85.89 Personal history of malignant neoplasm of other organs and systems
CPT/HCPCS: 36415; 70450-TC; 71045; 76376; 80048; 80053; 80061; 81000; 82550; 83036; 83605; 83735; 83880; 84100; 84484; 85025; 85651-TC; 86140; 87040-TC; 87081; 87086; 90935; 90937; 93005; 93922; 94640; 94760; 96365; 97110-GP; 97112-GP; 97530-GP; 99285; G0378; J0696; J7613; P9046